=== PATIENT | male | born 1935 | race Caucasian/White ===

== ENCOUNTER 2020-08-05 17:30 | Inpatient (IN) | payer MEDICARE, BC ==
--- NOTE | 2020-08-05 17:59 | EDM.PDOC ---
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 person assist to get him on the gurney. IV will be D5 normal saline starting at 150 mils per hour. - Re-Assessments/Exams Free Text/Narrative Re-Assessment/Exam: 08/05/20 19:03 the lab called over and indicates his lactic acid is elevated at 2.4. IV will be therefore increased to open. Nurses report post void residual is only 7 mils. O2 sats have been 93% on 2 L/min by nasal cannula. 08/05/20 19:07 portable chest x-ray reveals a calcified lesion approximately 2.5 cm in diameter right lower lobe of lung. There is no obvious pneumonia. There is a fatty infiltrate I believe at the apex of the heart in the left lower lobe. This was present on chest x-ray done in September 2017. Mild cardiomegaly present. Mild tortuous thoracic aorta appreciated. 08/05/20 19:10 White count is 9.57 with 85% neutrophils and 2% bands cells reported. Hemoglobin is mildly low at 10.8 with hematocrit of 33.2. MCV is mildly elevated at 98.2. The micro reveals platelet estimate to be adequate. There is 1+ anisocytosis and 1+ ovalocytes reported. PT is 11.2 with an INR of 1.05. PTT is 25.8. Sodium 141 with a potassium of 4.1. Chloride 106 with a bicarb of 21. Anion gap is elevated at 18.1. BUN is 36 with a creatinine of 1.7 and a GFR of 38 I stage IIIb renal insufficiency. BUN/creatinine ratio minimally elevated at 21.2. Glucose elevated 163. Lactic acid elevated at 2.4. Calcium is 8.4 with a magnesium of 1.8. Liver function is normal. Troponin I is less than 0.026. C-reactive protein is elevated at 3.2. BNP elevated at 1112. Total protein 6.9 with an albumin fraction of 3.4. Urinalysis reveals 1+ proteinuria and trace of lysed occult blood. Negative leukocyte esterase and the micro does not reveal any signs of a urinary tract infection. 08/05/20 19:24 I have spoken with the on-call hospitalist Dr. Blane Michele. Decision made on the phone between the 2 of us to start the patient on Levaquin 500 mg IV. Dose reduced due to decreased renal function and age. Source of infection remains undiagnosed. Dr Michele will seethe patient in the ED with plans for admission. Departure - Departure Time of Disposition: 20:00 Disposition: Admitted As Inpatient 66 Condition: Fair Clinical Impression: Fever of undetermined origin, Elevated lactic acid level, Tachypnea, Hypoxia - Discharge Information *PRESCRIPTION DRUG MONITORING PROGRAM REVIEWED*: Not Applicable *COPY OF PRESCRIPTION DRUG MONITORING REPORT IN PATIENT CLAUDIA: Not Applicable Sepsis Event Note (ED) - Evaluation Sepsis Screening Result: No Definite Risk
[2020-08-05] MEDS ORDERED: Acetaminophen 325 MG Tab PO PRN (18:05)
[2020-08-05] MEDS ORDERED: Dextrose 5%-0.9% NaCl 1,000 ML IV SCH ×2 (18:15→19:15)
[2020-08-05] MEDS ORDERED: Levofloxacin/Dextrose 5%-Water 500 MG in Premix Bag 1 BAG IV ONE (19:22)
--- NOTE | 2020-08-05 20:03 | PCM.HP.2 ---
H&P History of Present Illness - General Date of Service: 08/05/20 Admit Problem/Dx: Admission Diagnosis/Problem Admission Diagnosis/Problem Fever due to infection, Hypoxia, ? Pneumonia due to chronic aspiration Source of Information: Patient, Provider History Limitations: Reports: No Limitations - History of Present Illness Initial Comments - Free Text/Narative: Patient is an 85-year-old male with a past medical history as listed below who presents to the [facility] emergency department from [facility]. He was transported due to fevers as high as 102 F today. The patient has also been unable to ambulate. The patient is usually quite ambulatory and exercises daily. He typically has no adverse effects or symptoms after his exercise. He denies any chest pain or shortness of breath usually. 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 Rigors have been transient and somewhat excessive throughout the day. Patient has been unable to ambulate with any aids. He claims a chronic cough. He denies any sputum production. Claims dysphagia for both solids and liquids since his stroke 10 years ago. He coughs quite frequently while he eats and drinks. He denies any recent sick contacts. No recent travel. Despite his fever and rigors, he has not noticed any shortness of breath, chest pain, chest pressure or pleurisy. Denies any abdominal complaints. Denies any difficulties with voiding. No new skin wounds. Upon presentation the emergency department he was noted to be tachycardic, he was febrile to 102 F and he was also hypoxic. This was remedied by supplemental oxygen at 2 L/min. It was documented that he appeared in mild distress but appears well at current time. He is answering questions appropriately and all history comes from him personally. Patient did not have a leukocytosis. He had a mild lactic acidosis. Urinalysis was negative. Questionable right lower lobe pathology on chest x-ray. Patient was referred to the internal medicine service for further work-up and management. The patient was loaded with 500 mg of empiric Levaquin as he met sepsis de finition. A 14 point review of systems was reviewed with the patient entirely and only pertinent for the above information. CODE STATUS: Reviewed with the patient and he wishes to be full code. Chest Pain Score (Numeric/FACES): 8 - Related Data Allergies/Adverse Reactions: Allergies Allergy/AdvReac Type Severity Reaction Status Date / Time No Known Allergies Allergy Verified 10/01/17 13:38 Home Medications: Home Meds Acetaminophen [Tylenol Arthritis] 650 mg PO Q6HR PRN 08/05/20 [History] Allopurinol [Zyloprim] 300 mg PO DAILY 08/05/20 [History] Aspirin 81 mg PO DAILY 08/05/20 [History] Carboxymethylcellulose Sodium [Refresh Celluvisc] 1 drop EYEBOTH QID 08/05/20 [History] Cholecalciferol (Vitamin D3) [Vitamin D3] 2,000 unit PO DAILY 08/05/20 [History] Cyanocobalamin (Vitamin B12) [Vitamin B12] 100 mcg PO DAILY 08/05/20 [History] Docusate Sodium 100 mg PO BID 08/05/20 [History] Doxazosin Mesylate [Cardura] 2 mg PO DAILY 08/05/20 [History] Finasteride 5 mg PO DAILY 08/05/20 [History] Fluticasone Propionate [Flonase] 1 spray NASBOTH BID 08/05/20 [History] Furosemide [Lasix] 20 mg PO DAILY 08/05/20 [History] Losartan Potassium 50 mg PO DAILY 08/05/20 [History] Triamcinolone Acetonide [Triamcinolone Acetonide 0.1% Crm] 1 dose TOP BID PRN 08/05/20 [History] amLODIPine [Norvasc] 5 mg PO DAILY 08/05/20 [History] atorvaSTATin [Lipitor] 10 mg PO QPM 08/05/20 [History] guaiFENesin [Mucinex] 1 tab PO BID PRN 08/05/20 [History] guaiFENesin/Dextromethorphan [Guaifenesin-Dm 100-10 mg/5 ml] 1 dose PO Q4HR PRN 08/05/20 [History] Past Medical History HEENT History: Reports: Impaired Vision, Other (See Below) (Patient is wearing bilateral hearing aids.) Other HEENT History: Chronic dry eye syndrome Cardiovascular History: Reports: Heart Failure (Elevated BNP in 2018 when seen in the ED.), High Cholesterol, Hypertension Respiratory History: Reports: Sleep Apnea Gastrointestinal History: Reports: Chronic Constipation Genitourinary History: Reports: BPH Musculoskeletal History: Reports: Arthritis, Gout Neurological History: 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 Patient is leaning to the left today with attempts to walk. Apparently this occurred cortez rly 10 years ago. Patient had a feeding tube after the CVA which is subsequently been removed.) - Infectious Disease History Infectious Disease History: Reports: Novel Coronavirus - Past Surgical History HEENT Surgical History: Reports: Cataract Surgery Cardiovascular Surgical History: Reports: None Respiratory Surgical History: Reports: None Neurological Surgical History: Reports: None Musculoskeletal Surgical History: Reports: None Social & Family History - Family History Family Medical History: No Pertinent Family History - Tobacco Use Tobacco Use Status *Q: Never Tobacco User Used Tobacco, but Quit: Yes Month/Year Tobacco Last Used: 60 - Caffeine Use Caffeine Use: Reports: Coffee, Soda - Recreational Drug Use Recreational Drug Use: No - Living Situation & Occupation Living situation: Reports: Extended Care Facility ([facility] H&P Review of Systems - Review of Systems: Review Of Systems: Comprehensive ROS is negative, except as noted in HPI. Exam - Exam Exam: See Below - Vital Signs Vital Signs: Last Vital Signs Temp 98.0 F 08/05/20 19:04 Pulse 96 08/05/20 19:04 Resp 20 08/05/20 19:04 BP 120/55 L 08/05/20 19:04 Pulse Ox 94 L 08/05/20 19:04 Weight: 194 lb - Exam Quality Assessment: Supplemental Oxygen, DVT Prophylaxis General: Alert, Oriented, Cooperative HEENT: Conjunctiva Clear, Nares Patent, Pupils Equal Neck: Supple, Trachea Midline Lungs: Decreased Breath Sounds, Rales (Mild in right lower alfaro.) Cardiovascular: Regular Rate, Normal S1, Normal S2 GI/Abdominal Exam: Normal Bowel Sounds, Soft, Non-Tender, No Distention Extremities: Normal Inspection, Non-Tender, No Pedal Edema Skin: Warm, Dry, Intact Neurological: Normal Speech Neuro Extensive - Mental Status: Normal Mood/Affect - Patient Data Lab Results Last 24 hrs: Laboratory Results - last 24 hr 08/05/20 08/05/20 08/05/20 Range/Units 17:55 17:55 17:55 WBC 9.57 H (4.23-9.07) K/mm3 RBC 3.38 L (4.63-6.08) M/mm3 Hgb 10.8 L (13.7-17.5) gm/dl Hct 33.2 L (40.1-51.0) % MCV 98.2 H (79.0-92.2) fl MCH 32.0 (25.7-32.2) pg MCHC 32.5 (32.2-35.5) g/dl RDW Std Deviation 53.1 H (35.1-43.9) fL Plt Count 197 D (163-337) K/mm3 MPV 9.7 (9.4-12.3) fl Neutrophils % (Manual) 85 H (40-60) % Band Neutrophils % 2 (0-10) % Lymphocytes % (Manual) 11 L (20-40) % Atypical Lymphs % 0 % Monocytes % (Manual) 2 (2-10) % Eosinophils % (Manual) 0 L (0.8-7.0) % Basophils % (Manual) 0 L (0.2-1.2) Platelet Estimate Adequate Anisocytosis 1+ slight Ovalocytes 1+ slight RBC Morph Comment Not Reportable PT 11.2 (9.7-12.0) SECONDS INR 1.05 APTT 25.8 (21.7-31.4) SECONDS Sodium 141 (136-145) mEq/L Potassium 4.1 (3.5-5.1) mEq/L Chloride 106 (98-107) mEq/L Carbon Dioxide 21 (21-32) mEq/L Anion Gap 18.1 H (5-15) BUN 36 H (7-18) mg/dL Creatinine 1.7 H (0.7-1.3) mg/dL Est Cr Clr Drug Dosing 32.80 mL/min Estimated GFR (MDRD) 38 (>60) mL/min BUN/Creatinine Ratio 21.2 H (14-18) Glucose 163 H (70-99) mg/dL Lactic Acid (0.4-2.0) mmol/L Calcium 8.4 L (8.5-10.1) mg/dL Magnesium 1.8 (1.8-2.4) mg/dL Total Bilirubin 0.5 (0.2-1.0) mg/dL AST 16 (15-37) U/L ALT 17 (16-63) U/L Alkaline Phosphatase 47 (46-116) U/L Troponin I 0.026 (0.00-0.056) ng/mL C-Reactive Protein 3.2 H* (<1.0) mg/dL NT-Pro-B Natriuret Pep (0-450) pg/mL Total Protein 6.9 (6.4-8.2) g/dl Albumin 3.4 (3.4-5.0) g/dl Globulin 3.5 gm/dL Albumin/Globulin Ratio 1.0 (1-2) Urine Color (Yellow) Urine Appearance (Clear) Urine pH (5.0-8.0) Ur Specific [place] (1.005-1.030) Urine Protein (Negative) Urine Glucose (UA) (Negative) Urine Ketones (Negative) Urine Occult Blood (Negative) Urine Nitrite (Negative) Urine Bilirubin (Negative) Urine Urobilinogen (0.2-1.0) Ur Leukocyte Esterase (Negative) Urine RBC (0-5) /hpf Urine WBC (0-5) /hpf Ur Squamous Epith Cells (0-5) /hpf Urine Bacteria (FEW) /hpf Urine Mucus (FEW) /hpf SARS-CoV-2 RNA (RASHARD) (NEGATIVE) 08/05/20 08/05/20 08/05/20 Range/Units 17:55 17:55 18:15 WBC (4.23-9.07) K/mm3 RBC (4.63-6.08) M/mm3 Hgb (13.7-17.5) gm/dl Hct (40.1-51.0) % MCV (79.0-92.2) fl MCH (25.7-32.2) pg MCHC (32.2-35.5) g/dl RDW Std Deviation (35.1-43.9) fL Plt Count (163-337) K/mm3 MPV (9.4-12.3) fl Neutrophils % (Manual) (40-60) % Band Neutrophils % (0-10) % Lymphocytes % (Manual) (20-40) % Atypical Lymphs % % Monocytes % (Manual) (2-10) % Eosinophils % (Manual) (0.8-7.0) % Basophils % (Manual) (0.2-1.2) Platelet Estimate Anisocytosis Ovalocytes RBC Morph Comment PT (9.7-12.0) SECONDS INR APTT (21.7-31.4) SECONDS Sodium (136-145) mEq/L Potassium (3.5-5.1) mEq/L Chloride (98-107) mEq/L Carbon Dioxide (21-32) mEq/L Anion Gap (5-15) BUN (7-18) mg/dL Creatinine (0.7-1.3) mg/dL Est Cr Clr Drug Dosing mL/min Estimated GFR (MDRD) (>60) mL/min BUN/Creatinine Ratio (14-18) Glucose (70-99) mg/dL Lactic Acid 2.4 H* (0.4-2.0) mmol/L Calcium (8.5-10.1) mg/dL Magnesium (1.8-2.4) mg/dL Total Bilirubin (0.2-1.0) mg/dL AST (15-37) U/L ALT (16-63) U/L Alkaline Phosphatase (46-116) U/L Troponin I (0.00-0.056) ng/mL C-Reactive Protein (<1.0) mg/dL NT-Pro-B Natriuret Pep 1112 H (0-450) pg/mL Total Protein (6.4-8.2) g/dl Albumin (3.4-5.0) g/dl Globulin gm/dL Albumin/Globulin Ratio (1-2) Urine Color Yellow (Yellow) Urine Appearance Clear (Clear) Urine pH 6.0 (5.0-8.0) Ur Specific [place] 1.020 (1.005-1.030) Urine Protein 1+ H (Negative) Urine Glucose (UA) Negative (Negative) Urine Ketones Negative (Negative) Urine Occult Blood Trace-lysed H (Negative) Urine Nitrite Negative (Negative) Urine Bilirubin Negative (Negative) Urine Urobilinogen 0.2 (0.2-1.0) Ur Leukocyte Esterase Negative (Negative) Urine RBC 0-5 (0-5) /hpf Urine WBC 0-5 (0-5) /hpf Ur Squamous Epith Cells 0-5 (0-5) /hpf Urine Bacteria Few (FEW) /hpf Urine Mucus Few (FEW) /hpf SARS-CoV-2 RNA (RASHARD) (NEGATIVE) 08/05/20 Range/Units 18:15 WBC (4.23-9.07) K/mm3 RBC (4.63-6.08) M/mm3 Hgb (13.7-17.5) gm/dl Hct (40.1-51.0) % MCV (79.0-92.2) fl MCH (25.7-32.2) pg MCHC (32.2-35.5) g/dl RDW Std Deviation (35.1-43.9) fL Plt Count (163-337) K/mm3 MPV (9.4-12.3) fl Neutrophils % (Manual) (40-60) % Band Neutrophils % (0-10) % Lymphocytes % (Manual) (20-40) % Atypical Lymphs % % Monocytes % (Manual) (2-10) % Eosinophils % (Manual) (0.8-7.0) % Basophils % (Manual) (0.2-1.2) Platelet Estimate Anisocytosis Ovalocytes RBC Morph Comment PT (9.7-12.0) SECONDS INR APTT (21.7-31.4) SECONDS Sodium (136-145) mEq/L Potassium (3.5-5.1) mEq/L Chloride (98-107) mEq/L Carbon Dioxide (21-32) mEq/L Anion Gap (5-15) BUN (7-18) mg/dL Creatinine (0.7-1.3) mg/dL Est Cr Clr Drug Dosing mL/min Estimated GFR (MDRD) (>60) mL/min BUN/Creatinine Ratio (14-18) Glucose (70-99) mg/dL Lactic Acid (0.4-2.0) mmol/L Calcium (8.5-10.1) mg/dL Magnesium (1.8-2.4) mg/dL Total Bilirubin (0.2-1.0) mg/dL AST (15-37) U/L ALT (16-63) U/L Alkaline Phosphatase (46-116) U/L Troponin I (0.00-0.056) ng/mL C-Reactive Protein (<1.0) mg/dL NT-Pro-B Natriuret Pep (0-450) pg/mL Total Protein (6.4-8.2) g/dl Albumin (3.4-5.0) g/dl Globulin gm/dL Albumin/Globulin Ratio (1-2) Urine Color (Yellow) Urine Appearance (Clear) Urine pH (5.0-8.0) Ur Specific [place] (1.005-1.030) Urine Protein (Negative) Urine Glucose (UA) (Negative) Urine Ketones (Negative) Urine Occult Blood (Negative) Urine Nitrite (Negative) Urine Bilirubin (Negative) Urine Urobilinogen (0.2-1.0) Ur Leukocyte Esterase (Negative) Urine RBC (0-5) /hpf Urine WBC (0-5) /hpf Ur Squamous Epith Cells (0-5) /hpf Urine Bacteria (FEW) /hpf Urine Mucus (FEW) /hpf SARS-CoV-2 RNA (RASHARD) Negative (NEGATIVE) Result Diagrams: 08/05/20 17:55 08/05/20 17:55 Sepsis Event Note - Evaluation Sepsis Screening Result: Severe Sepsis Risk Current Stage of Sepsis: Sepsis Possible Source of Sepsis: Pulmonary - Focused Exam Sepsis Event Note Statement: Focused Sepsis Exam Completed Vital Signs: Vital Signs Temp Temp Pulse Resp BP Pulse Ox Pulse Ox 08/05/20 19:04 98.0 F 96 20 120/55 L 94 L 08/05/20 18:28 94 L 08/05/20 18:14 99.0 F 08/05/20 17:50 99.6 F 104 H 21 H 137/57 L 85 L - Problem List (1) Sepsis SNOMED Code(s): 82136408 ICD Code: A41.9 - SEPSIS, UNSPECIFIED ORGANISM Status: Acute Priority: Low Current Visit: Yes Qualifiers: Sepsis type: sepsis due to unspecified organism Severe sepsis acute organ dysfunction type: acute respiratory failure Acute respiratory failure type: wi th hypoxia Severe sepsis shock status: without septic shock (2) Pneumonia SNOMED Code(s): 268283419 ICD Code: J18.9 - PNEUMONIA, UNSPECIFIED ORGANISM Status: Acute Current Visit: Yes (3) Hypoxia SNOMED Code(s): 009661519 ICD Code: R09.02 - HYPOXEMIA Status: Acute Current Visit: Yes Problem List Initiated/Reviewed/Updated: Yes Orders Last 24hrs: Active Orders 24 hr Category Date Time Status Patient Status [ADT] Routine ADT 08/05/20 19:54 Ordered Bladder Scan [RC] ASDIRECTED Care 08/05/20 18:07 Active EKG Documentation Completion [RC] STAT Care 08/05/20 18:05 Active Oxygen Therapy [RC] ASDIRECTED Care 08/05/20 18:06 Active Oxygen Therapy [RC] PRN Care 08/05/20 19:54 Ordered Up With Assistance [RC] ASDIRECTED Care 08/05/20 19:54 Ordered VTE/DVT Education [RC] PER UNIT ROUTINE Care 08/05/20 19:54 Ordered Vital Signs [RC] Q4H Care 08/05/20 19:54 Ordered OT Evaluation and Treatment [CONS] Routine Cons 08/05/20 19:56 Ordered PT Evaluation and Treatment [CONS] Routine Cons 08/05/20 19:56 Ordered LUMP ROLLER Evaluation and Treatment [CONS] Routine Cons 08/05/20 19:56 Ordered 2 Gram Sodium Diet [DIET] Diet 08/05/20 Breakfast Ordered Chest 1V Frontal [CR] Stat Exams 08/05/20 18:05 Taken BASIC METABOLIC PANEL,BMP [CHEM] DAILY Lab 08/06/20 20:00 Ordered BASIC METABOLIC PANEL,BMP [CHEM] DAILY Lab 08/07/20 20:00 Ordered BASIC METABOLIC PANEL,BMP [CHEM] DAILY Lab 08/08/20 20:00 Ordered BASIC METABOLIC PANEL,BMP [CHEM] DAILY Lab 08/09/20 20:00 Ordered BASIC METABOLIC PANEL,BMP [CHEM] DAILY Lab 08/10/20 20:00 Ordered BASIC METABOLIC PANEL,BMP [CHEM] DAILY Lab 08/11/20 20:00 Ordered CBC WITH AUTO DIFF [HEME] DAILY Lab 08/06/20 20:00 Ordered CBC WITH AUTO DIFF [HEME] DAILY Lab 08/07/20 20:00 Ordered CBC WITH AUTO DIFF [HEME] DAILY Lab 08/08/20 20:00 Ordered CBC WITH AUTO DIFF [HEME] DAILY Lab 08/09/20 20:00 Ordered CBC WITH AUTO DIFF [HEME] DAILY Lab 08/10/20 20:00 Ordered Acetaminophen [TylenoL] Med 08/05/20 18:05 Active 650 mg PO Q4H PRN Dextrose 5%-0.9% NaCl [Dextrose 5%-Normal Saline] 1,000 Med 08/05/20 19:15 Active ml IV ASDIRECTED Levofloxacin/Dextrose 5%-Water [Levaquin in D5W 500 MG/ Med 08/05/20 19:22 Active 100 ML] 500 mg Premix Bag 1 bag IV ONETIME Resuscitation Status Routine Resus Stat 08/05/20 19:54 Ordered Medication Orders Acetaminophen (Acetaminophen 325 Mg Tab) 650 mg PO Q4H PRN PRN Reason: Pain Last Admin: 08/05/20 18:14 Dose: 650 mg Documented by: CECILIA Dextrose/Sodium Chloride (Dextrose 5%-Normal Saline) 1,000 mls @ 999 mls/hr IV ASDIRECTED FORD Last Admin: 08/05/20 19:14 Dose: 999 mls/hr Documented by: LANA Levofloxacin/Dextrose 500 mg/ (Premix) 100 mls @ 100 mls/hr IV ONETIME ONE Stop: 08/05/20 20:21 Last Admin: 08/05/20 19:34 Dose: 100 mls/hr Documented by: LANA Assessment/Plan Comment:: 85-year-old male who presents from [facility] due to fever, chills, rigors with hypoxia. 1. Sepsis (nonsevere, nonshock). Admit to the hospitalist service for further work-up and treatment. Source likely pneumonic. Possibly due to chronic aspiration. Patient given Levaquin in the emergency department. We will continue with Rocephin and azithromycin considering fluoroquinolones will have to be renally dosed. Continue volume expansion with crystalloid overnight. Patient with just a very mild lactic acidosis. Caution with aggressive volume expansion due to history of heart failure. Patient does not appear toxic. 2. Acute hypoxic respiratory failure secondary to likely pneumonia. Also likely multifactorial in the setting of COPD and mild congestive heart failure baseline. Plan as above as per empiric antibiotics. Respiratory therapy consult. Incentive spirometry and DuoNebs as needed. Supplemental oxygen as necessary with titration to greater than 92%. Daily ambulation saturation trials. 3. Hypertension. Continue home medications at regular dose. 4. Prior CVA. Continue antiplatelets and statin. PT and OT examination and treatment. Speech therapy consult pending due to swallowing mechanics likely leading to chronic aspiration. 5. History of gout. Continue daily prophylaxis with allopurinol. 6. BPH. Continue alpha-rakesh and finasteride. 7. Chronic congestive heart failure. Unspecified. Monitor volume status. Patient is on Lasix 20 mg daily. Will reinstate when euvolemic. Follow with PCP, obtain echocardiographic records if possible. CODE STATUS: Full code. DVT prophylaxis with heparin. - Mortality Measure Prognosis:: Good
[2020-08-05] MEDS ORDERED: Ondansetron 4 MG Tab.DIS PO PRN (20:13)
[2020-08-05] MEDS ORDERED: Docusate Sodium 100 MG Cap PO PRN (20:13)
[2020-08-05] MEDS ORDERED: Sodium Chloride 0.9% 10 ML Syringe FLUSH PRN (20:13)
[2020-08-05] MEDS ORDERED: Albuterol/Ipratropium 3.0-0.5 MG/3 ML Neb Soln NEB PRN (20:13)
[2020-08-05] MEDS ORDERED: Ondansetron 4 MG/2 ML SDV IV PRN (20:13)
[2020-08-05] MEDS ORDERED: guaiFENesin/Dextromethorphan 100-10 MG/5 ML Soln 5 ML Cup PO PRN (20:16)
[2020-08-05] MEDS ORDERED: guaiFENesin 600 MG Tab.ER PO PRN (20:16)
[2020-08-05] MEDS: Fluticasone Propionate Nasal Spray 16 GM Bottle NASBOTH SCH (22:11)
[2020-08-05] MEDS: cefTRIAXone 1 GM in Sodium Chloride 0.9% 100 ML IV SCH (22:11)
[2020-08-05] MEDS: Heparin Sodium 5,000 Units/ML Vial SUBCUT SCH (22:13)
[2020-08-05] MEDS: Azithromycin 500 MG in Sodium Chloride 0.9% 250 ML IV SCH (22:15)
[2020-08-06] MEDS: Heparin Sodium 5,000 Units/ML Vial SUBCUT SCH ×3 (06:17→21:24)
--- NOTE | 2020-08-06 08:08 | CR ---
Chest: Portable view of the chest was obtained. Comparison: Prior chest x-ray of 10/01/17 Heart size and mediastinum are within normal limits. Slight linear density is noted within the left lung base which appears stable from prior study which is presumably due to scarring. No acute parenchymal change is seen. Bony structures are within normal limits for the patient's age. Impression: 1. Stable findings as noted above. 2. Nothing acute is seen on portable chest x-ray. Diagnostic code #2
[2020-08-06] MEDS: Aspirin 81 MG Tab.Chew PO SCH (08:21)
[2020-08-06] MEDS: amLODIPine 5 MG Tab PO SCH (08:21)
[2020-08-06] MEDS: Finasteride 5 MG Tab PO SCH (08:22)
[2020-08-06] MEDS: Losartan 50 MG Tab PO SCH (08:22)
[2020-08-06] MEDS: Doxazosin 2 MG Tab PO SCH (08:22)
[2020-08-06] MEDS: Allopurinol 300 MG Tab PO SCH (08:22)
[2020-08-06] MEDS: Fluticasone Propionate Nasal Spray 16 GM Bottle NASBOTH SCH ×2 (08:22→20:39)
--- NOTE | 2020-08-06 08:44 | PCM.PN ---
- General Info Date of Service: 08/06/20 Admission Dx/Problem (Free Text): Admission Diagnosis/Problem Admission Diagnosis/Problem Fever due to infection, Hypoxia, ? Pneumonia due to chronic aspiration Subjective Update: No acute events overnight. No new nursing concerns. Patient remains on 1-2 L of supplemental oxygen. Patient eating breakfast. States that he is coughing a little bit when trying to swallow. Denies fever. States that he feels better in comparison to when he came in. - Patient Data Vitals - Most Recent: Last Vital Signs Temp 100.6 F 08/06/20 07:27 Pulse 81 08/06/20 07:27 Resp 16 08/06/20 07:27 BP 142/60 H 08/06/20 08:22 Pulse Ox 96 08/06/20 07:27 Weight - Most Recent: 194 lb 4.8 oz I&O - Last 24 Hours: Intake & Output 08/05/20 08/06/20 08/06/20 22:59 06:59 14:59 Intake Total 670 Output Total 1200 Balance -530 Lab Results Last 24 Hours: Laboratory Results - last 24 hr 08/05/20 08/05/20 08/05/20 Range/Units 17:55 17:55 17:55 WBC 9.57 H (4.23-9.07) K/mm3 RBC 3.38 L (4.63-6.08) M/mm3 Hgb 10.8 L (13.7-17.5) gm/dl Hct 33.2 L (40.1-51.0) % MCV 98.2 H (79.0-92.2) fl MCH 32.0 (25.7-32.2) pg MCHC 32.5 (32.2-35.5) g/dl RDW Std Deviation 53.1 H (35.1-43.9) fL Plt Count 197 D (163-337) K/mm3 MPV 9.7 (9.4-12.3) fl Neutrophils % (Manual) 85 H (40-60) % Band Neutrophils % 2 (0-10) % Lymphocytes % (Manual) 11 L (20-40) % Atypical Lymphs % 0 % Monocytes % (Manual) 2 (2-10) % Eosinophils % (Manual) 0 L (0.8-7.0) % Basophils % (Manual) 0 L (0.2-1.2) Platelet Estimate Adequate Anisocytosis 1+ slight Ovalocytes 1+ slight RBC Morph Comment Not Reportable PT 11.2 (9.7-12.0) SECONDS INR 1.05 APTT 25.8 (21.7-31.4) SECONDS Sodium 141 (136-145) mEq/L Potassium 4.1 (3.5-5.1) mEq/L Chloride 106 (98-107) mEq/L Carbon Dioxide 21 (21-32) mEq/L Anion Gap 18.1 H (5-15) BUN 36 H (7-18) mg/dL Creatinine 1.7 H (0.7-1.3) mg/dL Est Cr Clr Drug Dosing 32.80 mL/min Estimated GFR (MDRD) 38 (>60) mL/min BUN/Creatinine Ratio 21.2 H (14-18) Glucose 163 H (70-99) mg/dL Lactic Acid (0.4-2.0) mmol/L Calcium 8.4 L (8.5-10.1) mg/dL Magnesium 1.8 (1.8-2.4) mg/dL Total Bilirubin 0.5 (0.2-1.0) mg/dL AST 16 (15-37) U/L ALT 17 (16-63) U/L Alkaline Phosphatase 47 (46-116) U/L Troponin I 0.026 (0.00-0.056) ng/mL C-Reactive Protein 3.2 H* (<1.0) mg/dL NT-Pro-B Natriuret Pep (0-450) pg/mL Total Protein 6.9 (6.4-8.2) g/dl Albumin 3.4 (3.4-5.0) g/dl Globulin 3.5 gm/dL Albumin/Globulin Ratio 1.0 (1-2) Urine Color (Yellow) Urine Appearance (Clear) Urine pH (5.0-8.0) Ur Specific [place] (1.005-1.030) Urine Protein (Negative) Urine Glucose (UA) (Negative) Urine Ketones (Negative) Urine Occult Blood (Negative) Urine Nitrite (Negative) Urine Bilirubin (Negative) Urine Urobilinogen (0.2-1.0) Ur Leukocyte Esterase (Negative) Urine RBC (0-5) /hpf Urine WBC (0-5) /hpf Ur Squamous Epith Cells (0-5) /hpf Urine Bacteria (FEW) /hpf Urine Mucus (FEW) /hpf SARS-CoV-2 RNA (RASHARD) (NEGATIVE) 08/05/20 08/05/20 08/05/20 Range/Units 17:55 17:55 18:15 WBC (4.23-9.07) K/mm3 RBC (4.63-6.08) M/mm3 Hgb (13.7-17.5) gm/dl Hct (40.1-51.0) % MCV (79.0-92.2) fl MCH (25.7-32.2) pg MCHC (32.2-35.5) g/dl RDW Std Deviation (35.1-43.9) fL Plt Count (163-337) K/mm3 MPV (9.4-12.3) fl Neutrophils % (Manual) (40-60) % Band Neutrophils % (0-10) % Lymphocytes % (Manual) (20-40) % Atypical Lymphs % % Monocytes % (Manual) (2-10) % Eosinophils % (Manual) (0.8-7.0) % Basophils % (Manual) (0.2-1.2) Platelet Estimate Anisocytosis Ovalocytes RBC Morph Comment PT (9.7-12.0) SECONDS INR APTT (21.7-31.4) SECONDS Sodium (136-145) mEq/L Potassium (3.5-5.1) mEq/L Chloride (98-107) mEq/L Carbon Dioxide (21-32) mEq/L Anion Gap (5-15) BUN (7-18) mg/dL Creatinine (0.7-1.3) mg/dL Est Cr Clr Drug Dosing mL/min Estimated GFR (MDRD) (>60) mL/min BUN/Creatinine Ratio (14-18) Glucose (70-99) mg/dL Lactic Acid 2.4 H* (0.4-2.0) mmol/L Calcium (8.5-10.1) mg/dL Magnesium (1.8-2.4) mg/dL Total Bilirubin (0.2-1.0) mg/dL AST (15-37) U/L ALT (16-63) U/L Alkaline Phosphatase (46-116) U/L Troponin I (0.00-0.056) ng/mL C-Reactive Protein (<1.0) mg/dL NT-Pro-B Natriuret Pep 1112 H (0-450) pg/mL Total Protein (6.4-8.2) g/dl Albumin (3.4-5.0) g/dl Globulin gm/dL Albumin/Globulin Ratio (1-2) Urine Color Yellow (Yellow) Urine Appearance Clear (Clear) Urine pH 6.0 (5.0-8.0) Ur Specific [place] 1.020 (1.005-1.030) Urine Protein 1+ H (Negative) Urine Glucose (UA) Negative (Negative) Urine Ketones Negative (Negative) Urine Occult Blood Trace-lysed H (Negative) Urine Nitrite Negative (Negative) Urine Bilirubin Negative (Negative) Urine Urobilinogen 0.2 (0.2-1.0) Ur Leukocyte Esterase Negative (Negative) Urine RBC 0-5 (0-5) /hpf Urine WBC 0-5 (0-5) /hpf Ur Squamous Epith Cells 0-5 (0-5) /hpf Urine Bacteria Few (FEW) /hpf Urine Mucus Few (FEW) /hpf SARS-CoV-2 RNA (RASHARD) (NEGATIVE) 08/05/20 08/05/20 Range/Units 18:15 21:38 WBC (4.23-9.07) K/mm3 RBC (4.63-6.08) M/mm3 Hgb (13.7-17.5) gm/dl Hct (40.1-51.0) % MCV (79.0-92.2) fl MCH (25.7-32.2) pg MCHC (32.2-35.5) g/dl RDW Std Deviation (35.1-43.9) fL Plt Count (163-337) K/mm3 MPV (9.4-12.3) fl Neutrophils % (Manual) (40-60) % Band Neutrophils % (0-10) % Lymphocytes % (Manual) (20-40) % Atypical Lymphs % % Monocytes % (Manual) (2-10) % Eosinophils % (Manual) (0.8-7.0) % Basophils % (Manual) (0.2-1.2) Platelet Estimate Anisocytosis Ovalocytes RBC Morph Comment PT (9.7-12.0) SECONDS INR APTT (21.7-31.4) SECONDS Sodium (136-145) mEq/L Potassium (3.5-5.1) mEq/L Chloride (98-107) mEq/L Carbon Dioxide (21-32) mEq/L Anion Gap (5-15) BUN (7-18) mg/dL Creatinine (0.7-1.3) mg/dL Est Cr Clr Drug Dosing mL/min Estimated GFR (MDRD) (>60) mL/min BUN/Creatinine Ratio (14-18) Glucose (70-99) mg/dL Lactic Acid 2.0 (0.4-2.0) mmol/L Calcium (8.5-10.1) mg/dL Magnesium (1.8-2.4) mg/dL Total Bilirubin (0.2-1.0) mg/dL AST (15-37) U/L ALT (16-63) U/L Alkaline Phosphatase (46-116) U/L Troponin I (0.00-0.056) ng/mL C-Reactive Protein (<1.0) mg/dL NT-Pro-B Natriuret Pep (0-450) pg/mL Total Protein (6.4-8.2) g/dl Albumin (3.4-5.0) g/dl Globulin gm/dL Albumin/Globulin Ratio (1-2) Urine Color (Yellow) Urine Appearance (Clear) Urine pH (5.0-8.0) Ur Specific [place] (1.005-1.030) Urine Protein (Negative) Urine Glucose (UA) (Negative) Urine Ketones (Negative) Urine Occult Blood (Negative) Urine Nitrite (Negative) Urine Bilirubin (Negative) Urine Urobilinogen (0.2-1.0) Ur Leukocyte Esterase (Negative) Urine RBC (0-5) /hpf Urine WBC (0-5) /hpf Ur Squamous Epith Cells (0-5) /hpf Urine Bacteria (FEW) /hpf Urine Mucus (FEW) /hpf SARS-CoV-2 RNA (ARSHARD) Negative (NEGATIVE) Med Orders - Current: Current Medications Acetaminophen (Acetaminophen 325 Mg Tab) 650 mg PO Q4H PRN PRN Reason: Pain Last Admin: 08/05/20 18:14 Dose: 650 mg Documented by: Albuterol/Ipratropium (Albuterol/Ipratropium 3.0-0.5 Mg/3 Ml Neb Soln) 3 ml NEB Q4H PRN PRN Reason: Shortness Of Breath/wheezing Allopurinol (Allopurinol 300 Mg Tab) 300 mg PO DAILY [facility] Last Admin: 08/06/20 08:22 Dose: 300 mg Documented by: Amlodipine Besylate (Amlodipine 5 Mg Tab) 5 mg PO DAILY [facility] Last Admin: 08/06/20 08:21 Dose: 5 mg Documented by: Aspirin (Aspirin 81 Mg Tab.Chew) 81 mg PO DAILY [facility] Last Admin: 08/06/20 08:21 Dose: 81 mg Documented by: Atorvastatin Calcium (Atorvastatin 20 Mg Tab) 10 mg PO QPM [facility] Docusate Sodium (Docusate Sodium 100 Mg Cap) 100 mg PO BID PRN PRN Reason: Constipation Doxazosin Mesylate (Doxazosin 2 Mg Tab) 2 mg PO DAILY [facility] Last Admin: 08/06/20 08:22 Dose: 2 mg Documented by: Finasteride (Finasteride 5 Mg Tab) 5 mg PO DAILY [facility] Last Admin: 08/06/20 08:22 Dose: 5 mg Documented by: Fluticasone Propionate (Fluticasone Propionate Nasal [place] 16 Gm Bottle) 0 gm NASBOTH BID [facility] Last Admin: 08/06/20 08:22 Dose: 1 spray Documented by: Guaifenesin (Guaifenesin 600 Mg Tab.Er) 600 mg PO BID PRN PRN Reason: Congestion Guaifenesin/Phenylephrine HCl (Guaifenesin/Dextromethorphan 100-10 Mg/5 Ml Soln 5 Ml Cup) 5 ml PO Q4HR PRN PRN Reason: Cough Heparin Sodium (Porcine) (Heparin Sodium 5,000 Units/Ml Vial) 5,000 units SUBCUT Q8HR [facility] Dextrose/Sodium Chloride (Dextrose 5%-Normal Saline) 1,000 mls @ 999 mls/hr IV ASDIRECTED [facility] Last Admin: 08/05/20 19:14 Dose: 999 mls/hr Documented by: Ceftriaxone Sodium 1 gm/ (Sodium Chloride) 100 mls @ 200 mls/hr IV Q24H [facility] Last Admin: 08/05/20 22:11 Dose: 200 mls/hr Documented by: Azithromycin 500 mg/ Sodium (Chloride) 250 mls @ 250 mls/hr IV Q24H [facility] Last Admin: 08/05/20 22:15 Dose: 250 mls/hr Documented by: Losartan Potassium (Losartan 50 Mg Tab) 50 mg PO DAILY [facility] Last Admin: 08/06/20 08:22 Dose: 50 mg Documented by: Ondansetron HCl (Ondansetron 4 Mg Tab.Dis) 4 mg PO Q4H PRN PRN Reason: nausea, able to take PO Ondansetron HCl (Ondansetron 4 Mg/2 Ml Sdv) 4 mg IV Q4H PRN PRN Reason: Nausea/Vomiting Sodium Chloride (Sodium Chloride 0.9% 10 Ml Syringe) 10 ml FLUSH ASDIRECTED PRN PRN Reason: Keep Vein Open Discontinued Medications Heparin Sodium (Porcine) (Heparin Sodium 5,000 Units/Ml Vial) 5,000 units SUBCUT Q8H [facility] Last Admin: 08/06/20 06:17 Dose: 5,000 units Documented by: Dextrose/Sodium Chloride (Dextrose 5%-Normal Saline) 1,000 mls @ 125 mls/hr IV ASDIRECTED [facility] Last Admin: 08/05/20 18:14 Dose: 125 mls/hr Documented by: Levofloxacin/Dextrose 500 mg/ (Premix) 100 mls @ 100 mls/hr IV ONETIME ONE Stop: 08/05/20 20:21 Last Admin: 08/05/20 19:34 Dose: 100 mls/hr Documented by: - Exam Quality Assessment: Supplemental Oxygen, DVT Prophylaxis General: Alert, Cooperative, No Acute Distress, Other (Nontoxic-appearing) Lungs: Normal Respiratory Effort, Decreased Breath Sounds (Right base) Cardiovascular: Regular Rate, No Murmurs GI/Abdominal Exam: Normal Bowel Sounds, Soft, Non-Tender, No Distention Extremities: Normal Inspection, No Pedal Edema Skin: Warm, Dry Psy/Mental Status: Normal Mood - Patient Data Lab Results Last 24 hrs: Laboratory Results - last 24 hr 08/05/20 08/05/20 08/05/20 Range/Units 17:55 17:55 17:55 WBC 9.57 H (4.23-9.07) K/mm3 RBC 3.38 L (4.63-6.08) M/mm3 Hgb 10.8 L (13.7-17.5) gm/dl Hct 33.2 L (40.1-51.0) % MCV 98.2 H (79.0-92.2) fl MCH 32.0 (25.7-32.2) pg MCHC 32.5 (32.2-35.5) g/dl RDW Std Deviation 53.1 H (35.1-43.9) fL Plt Count 197 D (163-337) K/mm3 MPV 9.7 (9.4-12.3) fl Neutrophils % (Manual) 85 H (40-60) % Band Neutrophils % 2 (0-10) % Lymphocytes % (Manual) 11 L (20-40) % Atypical Lymphs % 0 % Monocytes % (Manual) 2 (2-10) % Eosinophils % (Manual) 0 L (0.8-7.0) % Basophils % (Manual) 0 L (0.2-1.2) Platelet Estimate Adequate Anisocytosis 1+ slight Ovalocytes 1+ slight RBC Morph Comment Not Reportable PT 11.2 (9.7-12.0) SECONDS INR 1.05 APTT 25.8 (21.7-31.4) SECONDS Sodium 141 (136-145) mEq/L Potassium 4.1 (3.5-5.1) mEq/L Chloride 106 (98-107) mEq/L Carbon Dioxide 21 (21-32) mEq/L Anion Gap 18.1 H (5-15) BUN 36 H (7-18) mg/dL Creatinine 1.7 H (0.7-1.3) mg/dL Est Cr Clr Drug Dosing 32.80 mL/min Estimated GFR (MDRD) 38 (>60) mL/min BUN/Creatinine Ratio 21.2 H (14-18) Glucose 163 H (70-99) mg/dL Lactic Acid (0.4-2.0) mmol/L Calcium 8.4 L (8.5-10.1) mg/dL Magnesium 1.8 (1.8-2.4) mg/dL Total Bilirubin 0.5 (0.2-1.0) mg/dL AST 16 (15-37) U/L ALT 17 (16-63) U/L Alkaline Phosphatase 47 (46-116) U/L Troponin I 0.026 (0.00-0.056) ng/mL C-Reactive Protein 3.2 H* (<1.0) mg/dL NT-Pro-B Natriuret Pep (0-450) pg/mL Total Protein 6.9 (6.4-8.2) g/dl Albumin 3.4 (3.4-5.0) g/dl Globulin 3.5 gm/dL Albumin/Globulin Ratio 1.0 (1-2) Urine Color (Yellow) Urine Appearance (Clear) Urine pH (5.0-8.0) Ur Specific [place] (1.005-1.030) Urine Protein (Negative) Urine Glucose (UA) (Negative) Urine Ketones (Negative) Urine Occult Blood (Negative) Urine Nitrite (Negative) Urine Bilirubin (Negative) Urine Urobilinogen (0.2-1.0) Ur Leukocyte Esterase (Negative) Urine RBC (0-5) /hpf Urine WBC (0-5) /hpf Ur Squamous Epith Cells (0-5) /hpf Urine Bacteria (FEW) /hpf Urine Mucus (FEW) /hpf SARS-CoV-2 RNA (RASHARD) (NEGATIVE) 08/05/20 08/05/20 08/05/20 Range/Units 17:55 17:55 18:15 WBC (4.23-9.07) K/mm3 RBC (4.63-6.08) M/mm3 Hgb (13.7-17.5) gm/dl Hct (40.1-51.0) % MCV (79.0-92.2) fl MCH (25.7-32.2) pg MCHC (32.2-35.5) g/dl RDW Std Deviation (35.1-43.9) fL Plt Count (163-337) K/mm3 MPV (9.4-12.3) fl Neutrophils % (Manual) (40-60) % Band Neutrophils % (0-10) % Lymphocytes % (Manual) (20-40) % Atypical Lymphs % % Monocytes % (Manual) (2-10) % Eosinophils % (Manual) (0.8-7.0) % Basophils % (Manual) (0.2-1.2) Platelet Estimate Anisocytosis Ovalocytes RBC Morph Comment PT (9.7-12.0) SECONDS INR APTT (21.7-31.4) SECONDS Sodium (136-145) mEq/L Potassium (3.5-5.1) mEq/L Chloride (98-107) mEq/L Carbon Dioxide (21-32) mEq/L Anion Gap (5-15) BUN (7-18) mg/dL Creatinine (0.7-1.3) mg/dL Est Cr Clr Drug Dosing mL/min Estimated GFR (MDRD) (>60) mL/min BUN/Creatinine Ratio (14-18) Glucose (70-99) mg/dL Lactic Acid 2.4 H* (0.4-2.0) mmol/L Calcium (8.5-10.1) mg/dL Magnesium (1.8-2.4) mg/dL Total Bilirubin (0.2-1.0) mg/dL AST (15-37) U/L ALT (16-63) U/L Alkaline Phosphatase (46-116) U/L Troponin I (0.00-0.056) ng/mL C-Reactive Protein (<1.0) mg/dL NT-Pro-B Natriuret Pep 1112 H (0-450) pg/mL Total Protein (6.4-8.2) g/dl Albumin (3.4-5.0) g/dl Globulin gm/dL Albumin/Globulin Ratio (1-2) Urine Color Yellow (Yellow) Urine Appearance Clear (Clear) Urine pH 6.0 (5.0-8.0) Ur Specific [place] 1.020 (1.005-1.030) Urine Protein 1+ H (Negative) Urine Glucose (UA) Negative (Negative) Urine Ketones Negative (Negative) Urine Occult Blood Trace-lysed H (Negative) Urine Nitrite Negative (Negative) Urine Bilirubin Negative (Negative) Urine Urobilinogen 0.2 (0.2-1.0) Ur Leukocyte Esterase Negative (Negative) Urine RBC 0-5 (0-5) /hpf Urine WBC 0-5 (0-5) /hpf Ur Squamous Epith Cells 0-5 (0-5) /hpf Urine Bacteria Few (FEW) /hpf Urine Mucus Few (FEW) /hpf SARS-CoV-2 RNA (RASHARD) (NEGATIVE) 08/05/20 08/05/20 Range/Units 18:15 21:38 WBC (4.23-9.07) K/mm3 RBC (4.63-6.08) M/mm3 Hgb (13.7-17.5) gm/dl Hct (40.1-51.0) % MCV (79.0-92.2) fl MCH (25.7-32.2) pg MCHC (32.2-35.5) g/dl RDW Std Deviation (35.1-43.9) fL Plt Count (163-337) K/mm3 MPV (9.4-12.3) fl Neutrophils % (Manual) (40-60) % Band Neutrophils % (0-10) % Lymphocytes % (Manual) (20-40) % Atypical Lymphs % % Monocytes % (Manual) (2-10) % Eosinophils % (Manual) (0.8-7.0) % Basophils % (Manual) (0.2-1.2) Platelet Estimate Anisocytosis Ovalocytes RBC Morph Comment PT (9.7-12.0) SECONDS INR APTT (21.7-31.4) SECONDS Sodium (136-145) mEq/L Potassium (3.5-5.1) mEq/L Chloride (98-107) mEq/L Carbon Dioxide (21-32) mEq/L Anion Gap (5-15) BUN (7-18) mg/dL Creatinine (0.7-1.3) mg/dL Est Cr Clr Drug Dosing mL/min Estimated GFR (MDRD) (>60) mL/min BUN/Creatinine Ratio (14-18) Glucose (70-99) mg/dL Lactic Acid 2.0 (0.4-2.0) mmol/L Calcium (8.5-10.1) mg/dL Magnesium (1.8-2.4) mg/dL Total Bilirubin (0.2-1.0) mg/dL AST (15-37) U/L ALT (16-63) U/L Alkaline Phosphatase (46-116) U/L Troponin I (0.00-0.056) ng/mL C-Reactive Protein (<1.0) mg/dL NT-Pro-B Natriuret Pep (0-450) pg/mL Total Protein (6.4-8.2) g/dl Albumin (3.4-5.0) g/dl Globulin gm/dL Albumin/Globulin Ratio (1-2) Urine Color (Yellow) Urine Appearance (Clear) Urine pH (5.0-8.0) Ur Specific [place] (1.005-1.030) Urine Protein (Negative) Urine Glucose (UA) (Negative) Urine Ketones (Negative) Urine Occult Blood (Negative) Urine Nitrite (Negative) Urine Bilirubin (Negative) Urine Urobilinogen (0.2-1.0) Ur Leukocyte Esterase (Negative) Urine RBC (0-5) /hpf Urine WBC (0-5) /hpf Ur Squamous Epith Cells (0-5) /hpf Urine Bacteria (FEW) /hpf Urine Mucus (FEW) /hpf SARS-CoV-2 RNA (RASHARD) Negative (NEGATIVE) Result Diagrams: 08/05/20 17:55 08/05/20 17:55 Sepsis Event Note - Evaluation Sepsis Screening Result: No Definite Risk - Focused Exam Vital Signs: Vital Signs Temp Pulse Resp BP Pulse Ox 08/06/20 08:22 142/60 H 08/06/20 08:21 142/60 H 08/06/20 08:20 142/60 H 08/06/20 07:27 100.6 F 81 16 134/56 L 96 08/06/20 02:06 98.4 F 85 20 125/65 93 L 08/05/20 22:54 99.3 F 72 18 96/61 93 L 08/05/20 20:50 97.7 F 77 18 120/39 L 94 L - Problem List & Annotations (1) Sepsis SNOMED Code(s): 10788420 Code(s): A41.9 - SEPSIS, UNSPECIFIED ORGANISM Status: Resolved Priority: Low Current Visit: Yes Qualifiers: Sepsis type: sepsis due to unspecified organism Severe sepsis acute organ dysfunction type: acute respiratory failure Acute respiratory failure type: with hypoxia Severe sepsis shock status: without septic shock (2) Pneumonia SNOMED Code(s): 676132921 Code(s): J18.9 - PNEUMONIA, UNSPECIFIED ORGANISM Status: Acute Current Visit: Yes (3) Hypoxia SNOMED Code(s): 851454086 Code(s): R09.02 - HYPOXEMIA Status: Acute Current Visit: Yes - Problem List Review Problem List Initiated/Reviewed/Updated: Yes - My Orders Last 24 Hours: My Active Orders 08/05/20 19:54 Patient Status [ADT] Routine Oxygen Therapy [RC] PRN Up With Assistance [RC] ASDIRECTED Vital Signs [RC] Q4H Resuscitation Status Routine 08/05/20 19:56 OT Evaluation and Treatment [CONS] Routine PT Evaluation and Treatment [CONS] Routine [employer] 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 Treatment [CONS] Routine 08/05/20 20:13 VTE/DVT Education [RC] PER UNIT ROUTINE Albuterol/Ipratropium [DuoNeb 3.0-0.5 MG/3 ML] 3 ml NEB Q4H PRN Docusate Sodium [Colace] 100 mg PO BID PRN Ondansetron [Zofran ODT] 4 mg PO Q4H PRN Ondansetron [Zofran] 4 mg IV Q4H PRN Sodium Chloride 0.9% [Saline Flush] 10 ml FLUSH ASDIRECTED PRN Saline Lock Insert [OM.PC] Routine 08/05/20 20:15 RT Aerosol Therapy [RC] ASDIRECTED 08/05/20 20:16 Dextromethorphan/guaiFENesin [Robitussin DM] 5 ml PO Q4HR PRN guaiFENesin [Mucinex] 600 mg PO BID PRN 08/05/20 20:30 Azithromycin [Zithromax] 500 mg Sodium Chloride 0.9% [Normal Saline (AdvBag)] 250 ml IV Q24H cefTRIAXone [Rocephin] 1 gm Sodium Chloride 0.9% [Normal Saline] 100 ml IV Q24H 08/05/20 21:00 Fluticasone Propionate [Flonase] 0 gm NASBOTH BID 08/06/20 09:00 Aspirin 81 mg PO DAILY Doxazosin [Cardura] 2 mg PO DAILY Finasteride [Proscar] 5 mg PO DAILY Losartan [Cozaar] 50 mg PO DAILY allopurinoL [Zyloprim] 300 mg PO DAILY amLODIPine [Norvasc] 5 mg PO DAILY 08/06/20 14:00 Heparin Sodium 5,000 units SUBCUT Q8HR 08/06/20 18:00 atorvaSTATin [Lipitor] 10 mg PO QPM 08/06/20 20:00 BASIC METABOLIC PANEL,BMP [CHEM] DAILY CBC WITH AUTO DIFF [HEME] DAILY 08/07/20 20:00 BASIC METABOLIC PANEL,BMP [CHEM] DAILY CBC WITH AUTO DIFF [HEME] DAILY 08/08/20 20:00 BASIC METABOLIC PANEL,BMP [CHEM] DAILY CBC WITH AUTO DIFF [HEME] DAILY 08/09/20 20:00 BASIC METABOLIC PANEL,BMP [CHEM] DAILY CBC WITH AUTO DIFF [HEME] DAILY 08/10/20 20:00 BASIC METABOLIC PANEL,BMP [CHEM] DAILY CBC WITH AUTO DIFF [HEME] DAILY 08/11/20 20:00 BASIC METABOLIC PANEL,BMP [CHEM] DAILY - Plan Plan:: 85-year-old male who presents from [facility] due to fever, chills, rigors with hypoxia. 1. Sepsis (nonsevere, nonshock). Source likely pneumonic. Possibly due to chronic aspiration. Patient given Levaquin in the emergency department. Continue with Rocephin and azithromycin considering fluoroquinolones will have to be renally dosed. Euvolemic at this point. Lactic acid normal. Patient does not appear toxic. Sepsis physiology resolved. 2. Acute hypoxic respiratory failure secondary to likely pneumonia. Also likely multifactorial in the setting of COPD and mild congestive heart failure baseline. Plan as above as per empiric antibiotics. Respiratory therapy consult. Incentive spirometry and DuoNebs as needed. Supplemental oxygen as necessary with titration to greater than 92%. Daily ambulation saturation trials. 3. Hypertension. Continue home medications at regular dose. 4. Prior CVA. Continue antiplatelets and statin. PT and OT examination and treatment. Speech therapy consult requested and pending due to swallowing mechanics likely leading to chronic aspiration. 5. History of gout. Continue daily prophylaxis with allopurinol. 6. BPH. Continue alpha-rakesh and finasteride. 7. Chronic congestive heart failure. Unspecified. Monitor volume status. Patient is on Lasix 20 mg daily. Will reinstate tomorrow. Follow with PCP, obtain echocardiographic records if possible. CODE STATUS: Full code. DVT prophylaxis with heparin.
[2020-08-06] MEDS ORDERED: atorvaSTATin 20 MG Tab PO SCH (18:00)
[2020-08-06] MEDS: cefTRIAXone 1 GM in Sodium Chloride 0.9% 100 ML IV SCH (20:39)
[2020-08-06] MEDS: Azithromycin 500 MG in Sodium Chloride 0.9% 250 ML IV SCH (21:24)
[2020-08-07] MEDS: Heparin Sodium 5,000 Units/ML Vial SUBCUT SCH (05:14)
[2020-08-07] MEDS: Aspirin 81 MG Tab.Chew PO SCH (09:20)
[2020-08-07] MEDS: Finasteride 5 MG Tab PO SCH (09:20)
[2020-08-07] MEDS: Doxazosin 2 MG Tab PO SCH (09:20)
[2020-08-07] MEDS: Losartan 50 MG Tab PO SCH (09:21)
[2020-08-07] MEDS: amLODIPine 5 MG Tab PO SCH (09:22)
[2020-08-07] MEDS: Allopurinol 300 MG Tab PO SCH (09:22)
[2020-08-07] MEDS: Fluticasone Propionate Nasal Spray 16 GM Bottle NASBOTH SCH (09:22)
--- NOTE | 2020-08-07 11:54 | PCM.DCSUM1 ---
Discharge Summary - Hospital Course Free Text/Narrative:: 85-year-old male who presents from [facility] due to fever, chills, rigors with hypoxia. 1. Sepsis (nonsevere, nonshock). Source likely pneumonic. Possibly due to chronic aspiration. Patient given Levaquin in the emergency department. Continued with Rocephin and azithromycin until time of discharge, at which del jessica was converted to Augmentin therapy to complete full course of antibiotics. Euvolemic at time of discharge Lactic acid normal. Sepsis physiology resolved. 2. Acute hypoxic respiratory failure secondary to likely pneumonia. Also likely multifactorial in the setting of COPD and mild congestive heart failure baseline. Antibiotics as noted above. Respiratory therapy consulted Incentive spirometry and DuoNebs as needed. Supplemental oxygen was provided as necessary. He was able to successfully wean off O2 the morning of 08/07. Daily ambulation saturation trials were tested by respiratory therapy. 3. Hypertension. Continued home medications at regular dose. 4. Prior CVA. Continued antiplatelets and statin. PT and OT examination and treatment. Speech therapy consult requested and pending due to swallowing mechanics likely leading to chronic aspiration. 5. History of gout. Continued daily prophylaxis with allopurinol. 6. BPH. Continued alpha-rakesh and finasteride. 7. Chronic congestive heart failure. Unspecified. Monitored volume status. Lasix orginally held but reinstated morning of discharge. CODE STATUS: Full code. DVT prophylaxis with heparin. HPI Initial Comments: Patient is an 85-year-old male with a past medical history as listed below who presents to the [facility] emergency department from [facility]. He was transported due to fevers as high as 102 F today. The patient has also been unable to ambulate. The patient is usually quite ambulatory and exercises daily. He typically has no adverse effects or symptoms after his exercise. He denies any chest pain or shortness of breath usually. Today, starting progress man he started to experience a persistent cold feeling with uncontrollable rigors. Rigors have been transient and somewhat excessive throughout the day. Patient has been unable to ambulate with any aids. He claims a chronic cough. He denies any sputum production. Claims dysphagia for both solids and liquids since his stroke 10 years ago. He coughs quite frequently while he eats and drinks. He denies any recent sick contacts. No recent travel. Despite his fever and rigors, he has not noticed any shortness of breath, chest pain, chest pressure or pleurisy. Denies any abdominal complaints. Denies any difficulties with voiding. No new skin wounds. Upon presentation the emergency department he was noted to be tachycardic, he was febrile to 102 F and he was also hypoxic. This was remedied by supp lemental oxygen at 2 L/min. It was documented that he appeared in mild distress but appears well at current time. He is answering questions appropriately and all history comes from him personally. Patient did not have a leukocytosis. He had a mild lactic acidosis. Urinalysis was negative. Questionable right lower lobe pathology on chest x-ray. Patient was referred to the internal medicine service for further work-up and management. The patient was loaded with 500 mg of empiric Levaquin as he met sepsis definition. A 14 point review of systems was reviewed with the patient entirely and only pertinent for the above information. CODE STATUS: Reviewed with the patient and he wishes to be full code. Chest Pain Score (Numeric/FACES): 8 - Related Data Allergies/Adverse Reactions: Allergies Allergy/AdvReac Type Severity Reaction Status Date / Time No Known Allergies Allergy Verified 10/01/17 13:38 Home Medications: Home Meds Acetaminophen [Tylenol Arthritis] 650 mg PO Q6HR PRN 08/05/20 [History] Allopurinol [Zyloprim] 300 mg PO DAILY 08/05/20 [History] Aspirin 81 mg PO DAILY 08/05/20 [History] Carboxymethylcellulose Sodium [Refresh Celluvisc] 1 drop EYEBOTH QID 08/05/20 [History] Cholecalciferol (Vitamin D3) [Vitamin D3] 2,000 unit PO DAILY 08/05/20 [History] Cyanocobalamin (Vitamin B12) [Vitamin B12] 100 mcg PO DAILY 08/05/20 [History] Docusate Sodium 100 mg PO BID 08/05/20 [History] Doxazosin Mesylate [Cardura] 2 mg PO DAILY 08/05/20 [History] Finasteride 5 mg PO DAILY 08/05/20 [History] Fluticasone Propionate [Flonase] 1 spray NASBOTH BID 08/05/20 [History] Furosemide [Lasix] 20 mg PO DAILY 08/05/20 [History] Losartan Potassium 50 mg PO DAILY 08/05/20 [History] Triamcinolone Acetonide [Triamcinolone Acetonide 0.1% Crm] 1 dose TOP BID PRN 08/05/20 [History] amLODIPine [Norvasc] 5 mg PO DAILY 08/05/20 [History] atorvaSTATin [Lipitor] 10 mg PO QPM 08/05/20 [History] guaiFENesin [Mucinex] 1 tab PO BID PRN 08/05/20 [History] guaiFENesin/Dextromethorphan [Guaifenesin-Dm 100-10 mg/5 ml] 1 dose PO Q4HR PRN 08/05/20 [History] Past Medical History HEENT History: Reports: Impaired Vision, Other (See Below) (Patient is wearing bilateral hearing aids.) Other HEENT History: Chronic dry eye syndrome Cardiovascular History: Reports: Heart Failure (Elevated BNP in 2018 when seen in the ED.), High Cholesterol, Hypertension Respiratory History: Reports: Sleep Apnea Gastrointestinal History: Reports: Chronic Constipation Genitourinary History: Reports: BPH Musculoskeletal History: Reports: Arthritis, Gout Neurological History: 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 Patient is leaning to the left today with attempts to walk. Apparently this occurred nearly 10 years ago. Patient had a feeding tube after the CVA which is subsequently been removed.) - Infectious Disease History Infectious Disease History: Reports: Novel Coronavirus - Past Surgical History HEENT Surgical History: Reports: Cataract Surgery Cardiovascular Surgical History: Reports: None Respiratory Surgical History: Reports: None Neurological Surgical History: Reports: None Musculoskeletal Surgical History: Reports: None Social & Family History - Family History Family Medical History: No Pertinent Family History - Tobacco Use Tobacco Use Status *Q: Never Tobacco User Used Tobacco, but Quit: Yes Month/Year Tobacco Last Used: 60 - Caffeine Use Caffeine Use: Reports: Coffee, Soda - Recreational Drug Use Recreational Drug Use: No - Living Situation & Occupation Living situation: Reports: Extended Care Facility ([facility] H&P Review of Systems - Review of Systems: Review Of Systems: Comprehensive ROS is negative, except as noted in HPI. Exam - Exam Exam: See Below - Vital Signs Vital Signs: Last Vital Signs Temp 98.0 F 08/05/20 19:04 Pulse 96 08/05/20 19:04 Resp 20 08/05/20 19:04 BP 120/55 L 08/05/20 19:04 Pulse Ox 94 L 08/05/20 19:04 Weight: 194 lb - Exam Quality Assessment: Supplemental Oxygen, DVT Prophylaxis General: Alert, Oriented, Cooperative HEENT: Conjunctiva Clear, Nares Patent, Pupils Equal Neck: Supple, Trachea Midline Lungs: Decreased Breath Sounds, Rales (Mild in right lower alfaro.) Cardiovascular: Regular Rate, Normal S1, Normal S2 GI/Abdominal Exam: Normal Bowel Sounds, Soft, Non-Tender, No Distention Extremities: Normal Inspection, Non-Tender, No Pedal Edema Skin: Warm, Dry, Intact Neurological: Normal Speech Neuro Extensive - Mental Status: Normal Mood/Affect - Discharge Data Discharge Date: 08/07/20 Discharge Disposition: Home, Self-Care 01 Condition: Good - Referral to Home Health Date of Face to Face Encounter: 08/07/20 Reason for Homebound Status: [id number] meeting with the patient. Patient has the following diagnosis; sepsis, pneumonia, hypoxia, also see discharge summary for additional diagnoses. Patient needs home health care nursing services for; longterm assessment, vital signs, disease education/management, and medication education. Physical therapy for gait training, transfer training, safety education, neuromuscular reeducation, therapeutic exercise, balance training. Occupational Therapy for; activities of daily living, balance training, functional mobility training, safety education, therapeutic activities, therapeutic exercises. Patient is currently homebound related decreased activity tolerance, decreased level of endurance, and need for assist to leave the facility. Patient will be followed by his primary care provider. Primary Care Physician: Edwardo Samaniego MD - Discharge Diagnosis/Problem(s) (1) Sepsis SNOMED Code(s): 65725479 ICD Code: A41.9 - SEPSIS, UNSPECIFIED ORGANISM Status: Resolved Priority: Low Current Visit: Yes Qualifiers: Sepsis type: sepsis due to unspecified organism Severe sepsis acute organ dysfunction type: acute respiratory failure Acute respiratory failure type: with hypoxia Severe sepsis shock status: without septic shock (2) Pneumonia SNOMED Code(s): 391061471 ICD Code: J18.9 - PNEUMONIA, UNSPECIFIED ORGANISM Status: Acute Current Visit: Yes (3) Hypoxia SNOMED Code(s): 695859431 ICD Code: R09.02 - HYPOXEMIA Status: Acute Current Visit: Yes - Patient Summary/Data Consults: Consultations 08/05/20 19:56 OT Evaluation and Treatment [CONS] Routine PT Evaluation and Treatment [CONS] Routine CASING PULLER Evaluation and Treatment [CONS] Routine - Patient Instructions Diet, Other: Mechanical diet as indicated by our speech therapist. Activity: As Tolerated Notify Provider of: Fever - Discharge Plan *PRESCRIPTION DRUG MONITORING PROGRAM REVIEWED*: Not Applicable *COPY OF PRESCRIPTION DRUG MONITORING REPORT IN PATIENT CLAUDIA: Not Applicable Prescriptions/Med Rec: Amoxicillin/Clavulanate K [Augmentin 875-125 MG] 1 tab PO BID #10 tablet Home Medications: Home Meds Acetaminophen [Tylenol Arthritis] 650 mg PO Q6HR PRN 08/05/20 [History] Allopurinol [Zyloprim] 300 mg PO DAILY 08/05/20 [History] Aspirin 81 mg PO DAILY 08/05/20 [History] Carboxymethylcellulose Sodium [Refresh Celluvisc] 1 drop EYEBOTH QID 08/05/20 [History] Cholecalciferol (Vitamin D3) [Vitamin D3] 2,000 unit PO DAILY 08/05/20 [History] Cyanocobalamin (Vitamin B12) [Vitamin B12] 100 mcg PO DAILY 08/05/20 [History] Docusate Sodium 100 mg PO BID 08/05/20 [History] Doxazosin Mesylate [Cardura] 2 mg PO DAILY 08/05/20 [History] Finasteride 5 mg PO DAILY 08/05/20 [History] Fluticasone Propionate [Flonase] 1 spray NASBOTH BID 08/05/20 [History] Furosemide [Lasix] 20 mg PO DAILY 08/05/20 [History] Losartan Potassium 50 mg PO DAILY 08/05/20 [History] Triamcinolone Acetonide [Triamcinolone Acetonide 0.1% Crm] 1 dose TOP BID PRN 08/05/20 [History] amLODIPine [Norvasc] 5 mg PO DAILY 08/05/20 [History] atorvaSTATin [Lipitor] 10 mg PO QPM 08/05/20 [History] guaiFENesin [Mucinex] 1 tab PO BID PRN 08/05/20 [History] guaiFENesin/Dextromethorphan [Guaifenesin-Dm 100-10 mg/5 ml] 1 dose PO Q4HR PRN 08/05/20 [History] Amoxicillin/Clavulanate K [Augmentin 875-125 MG] 1 tab PO BID #10 tablet 08/07/20 [Rx] Patient Handouts: Heart Failure Action Plan Forms: ED Department Discharge Referrals: Edwardo Samaniego MD [Primary Care Provider] - 08/20/20 11:30 am (check in 11:15) - Discharge Summary/Plan Comment DC Time >30 min.: Yes - General Info Date of Service: 08/07/20 Admission Dx/Problem (Free Text: Admission Diagnosis/Problem Admission Diagnosis/Problem Fever due to infection, Hypoxia, ? Pneumonia due to chronic aspiration Subjective Update: No acute events overnight. No new nursing concerns. Patient successfully weaned off oxygen this morning. Is tolerating ambulating with a walker without desaturation. Patient states that he feels really well and would like to leave the hospital as soon as possible. - Patient Data Vitals - Most Recent: Last Vital Signs Temp 98.8 F 08/07/20 07:41 Pulse 70 08/07/20 09:26 Resp 20 08/07/20 07:41 BP 128/64 08/07/20 09:22 Pulse Ox 95 08/07/20 09:26 Weight - Most Recent: 194 lb 3.2 oz I&O - Last 24 hours: Intake & Output 08/06/20 08/07/20 08/07/20 22:59 06:59 14:59 Intake Total 1280 750 Output Total 300 725 Balance 980 25 Lab Results - Last 24 hrs: Laboratory Results - last 24 hr 08/06/20 08/06/20 Range/Units 20:14 20:14 WBC 6.87 (4.23-9.07) K/mm3 RBC 3.22 L (4.63-6.08) M/mm3 Hgb 10.3 L (13.7-17.5) gm/dl Hct 32.1 L (40.1-51.0) % MCV 99.7 H (79.0-92.2) fl MCH 32.0 (25.7-32.2) pg MCHC 32.1 L (32.2-35.5) g/dl RDW Std Deviation 54.7 H (35.1-43.9) fL Plt Count 165 (163-337) K/mm3 MPV 9.7 (9.4-12.3) fl Neut % (Auto) 65.1 (34.0-67.9) % Lymph % (Auto) 21.4 L (21.8-53.1) % Tyler % (Auto) 13.1 H (5.3-12.2) % Eos % (Auto) 0 L (0.8-7.0) Baso % (Auto) 0.3 (0.1-1.2) % Neut # (Auto) 4.47 (1.78-5.38) K/mm3 Lymph # (Auto) 1.47 (1.32-3.57) K/mm3 Tyler # (Auto) 0.90 H (0.30-0.82) K/mm3 Eos # (Auto) 0.00 L (0.04-0.54) K/mm3 Baso # (Auto) 0.02 (0.01-0.08) K/mm3 Sodium 138 (136-145) mEq/L Potassium 3.9 (3.5-5.1) mEq/L Chloride 105 (98-107) mEq/L Carbon Dioxide 21 (21-32) mEq/L Anion Gap 15.9 H (5-15) BUN 25 H (7-18) mg/dL Creatinine 1.4 H (0.7-1.3) mg/dL Est Cr Clr Drug Dosing 39.83 mL/min Estimated GFR (MDRD) 48 (>60) mL/min BUN/Creatinine Ratio 17.9 (14-18) Glucose 182 H (70-99) mg/dL Calcium 8.2 L (8.5-10.1) mg/dL Med Orders - Current: Current Medications Acetaminophen (Acetaminophen 325 Mg Tab) 650 mg PO Q4H PRN PRN Reason: Pain Last Admin: 08/05/20 18:14 Dose: 650 mg Documented by: Albuterol/Ipratropium (Albuterol/Ipratropium 3.0-0.5 Mg/3 Ml Neb Soln) 3 ml NEB Q4H PRN PRN Reason: Shortness Of Breath/wheezing Allopurinol (Allopurinol 300 Mg Tab) 300 mg PO DAILY [facility] Last Admin: 08/07/20 09:22 Dose: 300 mg Documented by: Amlodipine Besylate (Amlodipine 5 Mg Tab) 5 mg PO DAILY [facility] Last Admin: 08/07/20 09:22 Dose: 5 mg Documented by: Aspirin (Aspirin 81 Mg Tab.Chew) 81 mg PO DAILY [facility] Last Admin: 08/07/20 09:20 Dose: 81 mg Documented by: Atorvastatin Calcium (Atorvastatin 20 Mg Tab) 10 mg PO QPM [facility] Last Admin: 08/06/20 17:45 Dose: 10 mg Documented by: Docusate Sodium (Docusate Sodium 100 Mg Cap) 100 mg PO BID PRN PRN Reason: Constipation Last Admin: 08/06/20 17:45 Dose: 100 mg Documented by: Doxazosin Mesylate (Doxazosin 2 Mg Tab) 2 mg PO DAILY [facility] Last Admin: 08/07/20 09:20 Dose: 2 mg Documented by: Finasteride (Finasteride 5 Mg Tab) 5 mg PO DAILY [facility] Last Admin: 08/07/20 09:20 Dose: 5 mg Documented by: Fluticasone Propionate (Fluticasone Propionate Nasal Climax 16 Gm Bottle) 0 gm NASBOTH BID [facility] Last Admin: 08/07/20 09:22 Dose: 1 spray Documented by: Guaifenesin (Guaifenesin 600 Mg Tab.Er) 600 mg PO BID PRN PRN Reason: Congestion Guaifenesin/Phenylephrine HCl (Guaifenesin/Dextromethorphan 100-10 Mg/5 Ml Soln 5 Ml Cup) 5 ml PO Q4HR PRN PRN Reason: Cough Heparin Sodium (Porcine) (Heparin Sodium 5,000 Units/Ml Vial) 5,000 units SUBCUT Q8HR [facility] Last Admin: 08/07/20 05:14 Dose: 5,000 units Documented by: Ceftriaxone Sodium 1 gm/ (Sodium Chloride) 100 mls @ 200 mls/hr IV Q24H [facility] Last Admin: 08/06/20 20:39 Dose: 200 mls/hr Documented by: Azithromycin 500 mg/ Sodium (Chloride) 250 mls @ 250 mls/hr IV Q24H [facility] Last Admin: 08/06/20 21:24 Dose: 250 mls/hr Documented by: Losartan Potassium (Losartan 50 Mg Tab) 50 mg PO DAILY [facility] Last Admin: 08/07/20 09:21 Dose: 50 mg Documented by: Ondansetron HCl (Ondansetron 4 Mg Tab.Dis) 4 mg PO Q4H PRN PRN Reason: nausea, able to take PO Ondansetron HCl (Ondansetron 4 Mg/2 Ml Sdv) 4 mg IV Q4H PRN PRN Reason: Nausea/Vomiting Sodium Chloride (Sodium Chloride 0.9% 10 Ml Syringe) 10 ml FLUSH ASDIRECTED PRN PRN Reason: Keep Vein Open Discontinued Medications Heparin Sodium (Porcine) (Heparin Sodium 5,000 Units/Ml Vial) 5,000 units SUBCUT Q8H [facility] Last Admin: 08/06/20 06:17 Dose: 5,000 units Documented by: Dextrose/Sodium Chloride (Dextrose 5%-Normal Saline) 1,000 mls @ 125 mls/hr IV ASDIRECTED [facility] Last Admin: 08/05/20 18:14 Dose: 125 mls/hr Documented by: Dextrose/Sodium Chloride (Dextrose 5%-Normal Saline) 1,000 mls @ 999 mls/hr IV ASDIRECTED [facility] Last Admin: 08/05/20 19:14 Dose: 999 mls/hr Documented by: Levofloxacin/Dextrose 500 mg/ (Premix) 100 mls @ 100 mls/hr IV ONETIME ONE Stop: 08/05/20 20:21 Last Admin: 08/05/20 19:34 Dose: 100 mls/hr Documented by: - Exam Quality Assessment: Reports: DVT Prophylaxis General: Reports: Alert Lungs: Reports: Clear to Auscultation, Normal Respiratory Effort Cardiovascular: Reports: Regular Rate, Regular Rhythm GI/Abdominal Exam: Normal Bowel Sounds, Soft, Non-Tender, No Distention Extremities: Normal Inspection, No Pedal Edema Skin: Reports: Warm, Dry Neurological: Reports: No New Focal Deficit Psy/Mental Status: Reports: Normal Mood
== END 2020-08-07 13:03 | disposition home or self-care (01) | DRG 871 ==
LOC: JD.ED 17:30 → JD.MS 20:08
PROVIDERS: ADMIT Hospitalist; ATTEND Hospitalist
DX: R50.9 Fever, unspecified (principal); R09.02 Hypoxemia; R06.82 Tachypnea, not elsewhere classified; R74.02 Elevation of levels of lactic acid dehydrogenase [LDH]; H54.7 Unspecified visual loss; H04.129 Dry eye syndrome of unspecified lacrimal gland; A41.9 Sepsis, unspecified organism; J69.0 Pneumonitis due to inhalation of food and vomit; E78.00 Pure hypercholesterolemia, unspecified; G47.30 Sleep apnea, unspecified; J96.01 Acute respiratory failure with hypoxia; I69.354 Hemiplegia and hemiparesis following cerebral infarction affecting left non-dominant side; M19.90 Unspecified osteoarthritis, unspecified site; M10.9 Gout, unspecified; N40.0 Benign prostatic hyperplasia without lower urinary tract symptoms; Z79.82 Long term (current) use of aspirin; Z79.899 Other long term (current) drug therapy; I11.0 Hypertensive heart disease with heart failure; I50.9 Heart failure, unspecified; K59.09 Other constipation; G47.33 Obstructive sleep apnea (adult) (pediatric); Z98.42 Cataract extraction status, left eye; Z98.41 Cataract extraction status, right eye; Z20.822 Contact with and (suspected) exposure to COVID-19
CPT/HCPCS: 36415; 71045; 80053; 81001; 83605; 83735; 83880; 84484; 85007; 85027; 85610; 85730; 86140; 93005; 94762; A9270; J1956; J7042 ×2; U0002; 51798; 80048; 85025; 92610-GN; 93010; 94760; 94761; 96365; 97110-GO; 97162-GP; 97166-GO; 97530-GP; 99223; 99233; 99239; 99285; 99285-25; J0456; J0696; J1644; J7050

== ENCOUNTER 2021-10-08 08:45 | Emergency (ER) | payer MEDICARE, BC ==
[2021-10-08] MEDS ORDERED: Sodium Chloride 0.9% 1,000 ML IV ONE (08:53)
[2021-10-08] MEDS ORDERED: Sodium Chloride 0.9% 10 ML Syringe FLUSH PRN ×2 (08:53→11:52)
[2021-10-08] MEDS ORDERED: Acetaminophen 325 MG Tab PO ONE (09:14)
[2021-10-08] MEDS ORDERED: Iopamidol 612 MG/ML 100 ML Bottle IVPUSH ONE (11:52)
== END 2021-10-08 15:02 | disposition home or self-care (01) ==
LOC: JD.ED 08:45
DX: U07.1 COVID-19 (principal); D72.829 Elevated white blood cell count, unspecified; R59.9 Enlarged lymph nodes, unspecified; K63.89 Other specified diseases of intestine; I11.0 Hypertensive heart disease with heart failure; I50.9 Heart failure, unspecified; M10.9 Gout, unspecified; Z79.899 Other long term (current) drug therapy; Z79.82 Long term (current) use of aspirin; Z86.16 Personal history of COVID-19; Z86.73 Personal history of transient ischemic attack (TIA), and cerebral infarction without residual deficits
CPT/HCPCS: 36415; 51701; 71045; 74177; 80053; 81003; 83605; 83735; 84145; 85007; 85027; 85610; 86140; 87040; 96360; 96361; 99285; A9270; J3490; J7030; Q9967; U0002; 99284

== ENCOUNTER → 2021-11-13 | Day surgery (SDC) | payer MEDICARE, BC ==
[~2021-11-13] MED LIST: Lactated Ringers 1,000 ML IV SCH; Lidocaine 1% 2 ML ONE; Lidocaine 1%/Sod Bicarbonate in NS 8.4% 1 ML Syringe IDERM PRN; Midazolam 1 MG/ML 2 ML SDV ONE; Ondansetron 4 MG/2 ML SDV IVPUSH PRN; Propofol 200 MG/20 ML SDV ONE; Sodium Chloride 0.9% 10 ML Syringe FLUSH PRN; Sodium Chloride 0.9% 10 ML Syringe FLUSH SCH; fentaNYL 100 MCG/2 ML SDV IVPUSH PRN; fentaNYL 100 MCG/2 ML SDV ONE
== END | disposition home or self-care (01) ==
LOC: JD.SDS 09:28
PROVIDERS: ATTEND Surgery
DX: D12.0 Benign neoplasm of cecum (principal); D12.3 Benign neoplasm of transverse colon; D12.7 Benign neoplasm of rectosigmoid junction; K57.30 Diverticulosis of large intestine without perforation or abscess without bleeding; K64.8 Other hemorrhoids; M10.9 Gout, unspecified; G47.30 Sleep apnea, unspecified; I11.0 Hypertensive heart disease with heart failure; I50.9 Heart failure, unspecified; Z98.890 Other specified postprocedural states; Z79.899 Other long term (current) drug therapy; Z79.82 Long term (current) use of aspirin; Z87.891 Personal history of nicotine dependence
CPT/HCPCS: 45380; J2250; J2704; J3010; J7120

== ENCOUNTER 2021-12-16 09:05 | Inpatient (IN) | payer MEDICARE, BC ==
[2021-12-16] MEDS ORDERED: Sodium Chloride 0.9% 10 ML Syringe FLUSH PRN ×2 (09:45→11:35)
[2021-12-16] MEDS ORDERED: cefTRIAXone 2 GM in Sodium Chloride 0.9% 100 ML IV ONE (10:53)
[2021-12-16] MEDS ORDERED: Sodium Chloride 0.9% 1,000 ML IV ONE (10:54)
[2021-12-16] MEDS ORDERED: Acetaminophen 325 MG Tab PO ONE (11:03)
[2021-12-16] MEDS ORDERED: Iopamidol 612 MG/ML 100 ML Bottle IVPUSH ONE (11:35)
[2021-12-16] MEDS ORDERED: Gadobenate Dimeglumine 529 MG/ML 15 ML SDV IVPUSH ONE (15:10)
[2021-12-16] MEDS ORDERED: Sodium Chloride 0.9% 10 ML Syringe FLUSH SCH (15:15)
[2021-12-16 16:14] LABS: CORONAVIRUS COVID-19 NAA NEGATIVE (NEGATIVE)
[2021-12-16] MEDS ORDERED: Albuterol/Ipratropium 3.0-0.5 MG/3 ML Neb Soln NEB ONE (17:06)
[2021-12-16] MEDS ORDERED: metroNIDAZOLE/Normal Saline 500 MG in Premix Bag 1 BAG IV ONE (18:38)
[2021-12-17] MEDS ORDERED: metroNIDAZOLE/Normal Saline 100 ML ONE ×2 (03:20→13:30)
[2021-12-17] MEDS ORDERED: Acetaminophen 325 MG Tab ONE ×2 (04:55→09:40)
[2021-12-17] MEDS ORDERED: cefTRIAXone 2 GM Vial ONE (09:39)
[2021-12-17] MEDS ORDERED: Allopurinol 300 MG Tab ONE (09:40)
[2021-12-17] MEDS ORDERED: Aspirin 81 MG Tab.EC ONE (09:40)
[2021-12-17] MEDS ORDERED: Finasteride 5 MG Tab ONE (09:40)
[2021-12-17] MEDS ORDERED: Furosemide 20 MG/2 ML VIAL ONE (09:41)
[2021-12-17] MEDS ORDERED: Docusate Sodium 100 MG Cap ONE (09:41)
[2021-12-17] MEDS ORDERED: Tamsulosin 0.4 MG Cap.ER ONE (09:41)
[2021-12-17] MEDS ORDERED: Enoxaparin 40 MG/0.4 ML Syringe ONE (09:42)
[2021-12-17] MEDS ORDERED: Sodium Chloride 0.9% 100 ML ONE (09:42)
[2021-12-17] MEDS ORDERED: oxyCODONE 5 MG Tab ONE (13:29)
[2021-12-17] MEDS ORDERED: Ondansetron 4 MG/2 ML SDV IVPUSH PRN (15:31)
[2021-12-17] MEDS: metroNIDAZOLE/Normal Saline 500 MG in Premix Bag 1 BAG IV SCH (20:33)
[2021-12-17] MEDS: Tamsulosin 0.4 MG Cap.ER PO SCH (20:33)
[2021-12-17] MEDS: Docusate Sodium 100 MG Cap PO SCH (20:33)
[2021-12-18] MEDS: metroNIDAZOLE/Normal Saline 500 MG in Premix Bag 1 BAG IV SCH ×3 (04:14→20:49)
[2021-12-18] MEDS: cefTRIAXone 2 GM in Sodium Chloride 0.9% 100 ML IV SCH (09:00)
[2021-12-18] MEDS: Docusate Sodium 100 MG Cap PO SCH ×2 (09:00→20:20)
[2021-12-18] MEDS: Enoxaparin 40 MG/0.4 ML Syringe SUBCUT SCH (09:01)
[2021-12-18] MEDS: Allopurinol 300 MG Tab PO SCH (09:01)
[2021-12-18] MEDS: Aspirin 81 MG Tab.EC PO SCH (09:01)
[2021-12-18] MEDS: Finasteride 5 MG Tab PO SCH (09:01)
[2021-12-18] MEDS: Tamsulosin 0.4 MG Cap.ER PO SCH ×2 (09:01→20:20)
[2021-12-18] MEDS: atorvaSTATin 20 MG Tab PO SCH (09:01)
[2021-12-18] MEDS ORDERED: Potassium Chloride 20 MEQ Tab.ER PO ONE (09:39)
[2021-12-18] MEDS: Acetaminophen 325 MG Tab PO PRN ×2 (10:28→20:21)
[2021-12-18] MEDS: Furosemide 20 MG Tab PO SCH (10:28)
[2021-12-18] MEDS ORDERED: oxyCODONE 5 MG Tab PO PRN (16:08)
[2021-12-19] MEDS: metroNIDAZOLE/Normal Saline 500 MG in Premix Bag 1 BAG IV SCH (03:43)
[2021-12-19] MEDS: cefTRIAXone 2 GM in Sodium Chloride 0.9% 100 ML IV SCH (07:46)
[2021-12-19] MEDS: Furosemide 20 MG Tab PO SCH (08:02)
[2021-12-19] MEDS: atorvaSTATin 20 MG Tab PO SCH (08:03)
[2021-12-19] MEDS: Docusate Sodium 100 MG Cap PO SCH ×2 (08:04→20:16)
[2021-12-19] MEDS: Tamsulosin 0.4 MG Cap.ER PO SCH ×2 (08:04→20:16)
[2021-12-19] MEDS: Finasteride 5 MG Tab PO SCH (08:04)
[2021-12-19] MEDS: Aspirin 81 MG Tab.EC PO SCH (08:04)
[2021-12-19] MEDS: Allopurinol 300 MG Tab PO SCH (08:04)
[2021-12-19] MEDS: Enoxaparin 40 MG/0.4 ML Syringe SUBCUT SCH (08:11)
[2021-12-19] MEDS: Acetaminophen 325 MG Tab PO PRN ×2 (09:56→20:15)
[2021-12-20] MEDS ORDERED: Bisacodyl 5 MG Tab PO PRN (05:45)
[2021-12-20] MEDS: cefTRIAXone 2 GM in Sodium Chloride 0.9% 100 ML IV SCH (08:14)
[2021-12-20] MEDS: Enoxaparin 40 MG/0.4 ML Syringe SUBCUT SCH (08:15)
[2021-12-20] MEDS: atorvaSTATin 20 MG Tab PO SCH (08:20)
[2021-12-20] MEDS: Aspirin 81 MG Tab.EC PO SCH (08:21)
[2021-12-20] MEDS: Furosemide 20 MG Tab PO SCH (08:21)
[2021-12-20] MEDS: Allopurinol 300 MG Tab PO SCH (08:22)
[2021-12-20] MEDS: Finasteride 5 MG Tab PO SCH (08:22)
[2021-12-20] MEDS: Tamsulosin 0.4 MG Cap.ER PO SCH ×2 (08:22→22:26)
[2021-12-20] MEDS: Docusate Sodium 100 MG Cap PO SCH ×2 (08:22→22:26)
[2021-12-20] MEDS: Polyethylene Glycol 3350 Powder 17 GM Packet PO SCH (08:23)
[2021-12-20] MEDS ORDERED: Sodium Chloride 0.9% 10 ML Syringe FLUSH PRN (08:57)
[2021-12-20] MEDS ORDERED: Iopamidol 755 Mg/ML 100 ML Bottle IVPUSH ONE (08:57)
[2021-12-21] MEDS: cefTRIAXone 2 GM in Sodium Chloride 0.9% 100 ML IV SCH (07:35)
[2021-12-21] MEDS: atorvaSTATin 20 MG Tab PO SCH (09:42)
[2021-12-21] MEDS: Acetaminophen 325 MG Tab PO PRN ×2 (09:44→17:01)
[2021-12-21] MEDS: Allopurinol 300 MG Tab PO SCH (09:45)
[2021-12-21] MEDS: Tamsulosin 0.4 MG Cap.ER PO SCH ×2 (09:46→21:30)
[2021-12-21] MEDS: Furosemide 20 MG Tab PO SCH (09:46)
[2021-12-21] MEDS: Aspirin 81 MG Tab.EC PO SCH (09:46)
[2021-12-21] MEDS: Finasteride 5 MG Tab PO SCH (09:46)
[2021-12-21] MEDS: Docusate Sodium 100 MG Cap PO SCH ×2 (09:46→22:06)
[2021-12-21] MEDS: Potassium Chloride 20 MEQ Tab.ER PO SCH ×3 (09:52→17:01)
[2021-12-21] MEDS: Enoxaparin 40 MG/0.4 ML Syringe SUBCUT SCH (09:53)
[2021-12-21] MEDS: Polyethylene Glycol 3350 Powder 17 GM Packet PO SCH (09:57)
[2021-12-21] MEDS ORDERED: Piperacillin/Tazobactam 4.5 GM in Sodium Chloride 0.9% 100 ML IV ONE (16:28)
[2021-12-22] MEDS: Piperacillin/Tazobactam 4.5 GM in Sodium Chloride 0.9% 100 ML IV SCH ×3 (00:59→17:08)
[2021-12-22] MEDS: atorvaSTATin 20 MG Tab PO SCH (08:05)
[2021-12-22] MEDS: Furosemide 20 MG Tab PO SCH (08:07)
[2021-12-22] MEDS: Aspirin 81 MG Tab.EC PO SCH (08:07)
[2021-12-22] MEDS: Allopurinol 300 MG Tab PO SCH (08:07)
[2021-12-22] MEDS: Potassium Chloride 20 MEQ Tab.ER PO SCH ×3 (08:07→17:08)
[2021-12-22] MEDS: Enoxaparin 40 MG/0.4 ML Syringe SUBCUT SCH (08:08)
[2021-12-22] MEDS: Finasteride 5 MG Tab PO SCH (08:08)
[2021-12-22] MEDS: Polyethylene Glycol 3350 Powder 17 GM Packet PO SCH (08:08)
[2021-12-22] MEDS: Docusate Sodium 100 MG Cap PO SCH ×2 (08:09→21:09)
[2021-12-22] MEDS: Acetaminophen 325 MG Tab PO PRN ×2 (08:22→17:07)
[2021-12-22] MEDS: Tamsulosin 0.4 MG Cap.ER PO SCH ×2 (10:05→21:15)
[2021-12-23] MEDS: Piperacillin/Tazobactam 4.5 GM in Sodium Chloride 0.9% 100 ML IV SCH ×2 (01:28→12:34)
[2021-12-23] MEDS: Furosemide 20 MG Tab PO SCH (12:22)
[2021-12-23] MEDS: Aspirin 81 MG Tab.EC PO SCH (12:23)
[2021-12-23] MEDS: Allopurinol 300 MG Tab PO SCH (12:23)
[2021-12-23] MEDS: Finasteride 5 MG Tab PO SCH (12:23)
[2021-12-23] MEDS: atorvaSTATin 20 MG Tab PO SCH (12:23)
[2021-12-23] MEDS: Potassium Chloride 20 MEQ Tab.ER PO SCH ×2 (12:24→12:32)
[2021-12-23] MEDS ORDERED: Sodium Chloride 0.9% 100 ML ONE (12:31)
[2021-12-23] MEDS: Enoxaparin 40 MG/0.4 ML Syringe SUBCUT SCH (12:32)
[2021-12-23] MEDS: Polyethylene Glycol 3350 Powder 17 GM Packet PO SCH (12:33)
[2021-12-23] MEDS: Tamsulosin 0.4 MG Cap.ER PO SCH (12:33)
[2021-12-23] MEDS: Docusate Sodium 100 MG Cap PO SCH (12:33)
== END 2021-12-23 14:20 | DRG 871 ==
LOC: JD.ED 09:05 → JD.MS 12:59 → JD.ED 19:55
PROVIDERS: ADMIT Internal Medicine; ATTEND Internal Medicine
DX: A41.51 Sepsis due to Escherichia coli [E. coli] (principal); R09.02 Hypoxemia; R50.9 Fever, unspecified; J18.9 Pneumonia, unspecified organism; C18.9 Malignant neoplasm of colon, unspecified; N39.0 Urinary tract infection, site not specified; I50.32 Chronic diastolic (congestive) heart failure; I50.9 Heart failure, unspecified; E78.00 Pure hypercholesterolemia, unspecified; I11.0 Hypertensive heart disease with heart failure; G47.30 Sleep apnea, unspecified; N40.0 Benign prostatic hyperplasia without lower urinary tract symptoms; M19.90 Unspecified osteoarthritis, unspecified site; M06.9 Rheumatoid arthritis, unspecified; Z20.822 Contact with and (suspected) exposure to COVID-19; Z66 Do not resuscitate; K63.89 Other specified diseases of intestine; M54.2 Cervicalgia; N40.1 Benign prostatic hyperplasia with lower urinary tract symptoms; D64.9 Anemia, unspecified; R35.0 Frequency of micturition; R79.89 Other specified abnormal findings of blood chemistry; M1A.00X0 Idiopathic chronic gout, unspecified site, without tophus (tophi); I10 Essential (primary) hypertension; Z79.82 Long term (current) use of aspirin; Z87.891 Personal history of nicotine dependence; Z86.73 Personal history of transient ischemic attack (TIA), and cerebral infarction without residual deficits; Z86.16 Personal history of COVID-19; Z79.899 Other long term (current) drug therapy
CPT/HCPCS: 0240U; 36415; 71045; 71046; 72126; 72156; 74177; 80048; 80053; 81001; 83605; 83880; 84484; 85025; 85610; 85652; 86140; 87040; 87077; 87086; 87088; 87154; 87186; 92610; 93005; 94640; 94660; 94760; 94761; 97116; 97166; 97530; 97535; A9270-GY; A9577; J0696; J1650; J2543; J3490; J7030; J7620-GY; Q9967; U0002

== ENCOUNTER 2022-04-02 18:58 | Inpatient (IN) | payer MEDICARE, BC ==
[2022-04-02] MEDS ORDERED: Sodium Chloride 0.9% 10 ML Syringe FLUSH PRN (19:33)
[2022-04-02 20:37] LABS: ESTIMATED GFR 59 mL/min (>60)
[2022-04-02 20:48] LABS: CORONAVIRUS COVID-19 NAA NEGATIVE (NEGATIVE)
[2022-04-02] MEDS ORDERED: cefTRIAXone 2 GM in Sodium Chloride 0.9% 100 ML IV ONE (22:19)
[2022-04-03] MEDS ORDERED: Acetaminophen 325 MG Tab PO PRN (05:13)
[2022-04-03] MEDS ORDERED: Enoxaparin 30 MG/0.3 ML Syringe SUBCUT SCH (08:00)
[2022-04-03] MEDS ORDERED: Sodium Chloride 0.9% 500 ML ONE (09:24)
[2022-04-03] MEDS: guaiFENesin 600 MG Tab.ER PO SCH ×2 (09:51→20:41)
[2022-04-03] MEDS: Allopurinol 300 MG Tab PO SCH (09:52)
[2022-04-03] MEDS: Fluticasone NASAL Spray 16 GM Bottle NASBOTH SCH ×2 (09:53→20:30)
[2022-04-03] MEDS: Donepezil 10 MG Tab PO SCH (09:53)
[2022-04-03] MEDS: Furosemide 20 MG Tab PO SCH (09:54)
[2022-04-03] MEDS: Finasteride 5 MG Tab PO SCH (09:54)
[2022-04-03] MEDS: Tamsulosin 0.4 MG Cap.ER PO SCH ×2 (09:54→20:40)
[2022-04-03] MEDS: Carboxymethylcellulose Sodium 1% Ophth Gel 15 ML Bottle EYEBOTH SCH ×3 (09:54→20:30)
[2022-04-03] MEDS: cefTRIAXone 1 GM in Sodium Chloride 0.9% 100 ML IV SCH (21:15)
[2022-04-04] MEDS: Fluticasone NASAL Spray 16 GM Bottle NASBOTH SCH ×2 (08:40→20:01)
[2022-04-04] MEDS: Donepezil 10 MG Tab PO SCH (08:40)
[2022-04-04] MEDS: Finasteride 5 MG Tab PO SCH (08:40)
[2022-04-04] MEDS: Furosemide 20 MG Tab PO SCH (08:40)
[2022-04-04] MEDS: Allopurinol 300 MG Tab PO SCH (08:40)
[2022-04-04] MEDS: Tamsulosin 0.4 MG Cap.ER PO SCH ×2 (08:40→20:01)
[2022-04-04] MEDS: guaiFENesin 600 MG Tab.ER PO SCH ×2 (08:40→20:01)
[2022-04-04] MEDS: Carboxymethylcellulose Sodium 1% Ophth Gel 15 ML Bottle EYEBOTH SCH ×3 (08:40→20:01)
[2022-04-04] MEDS: cefTRIAXone 1 GM in Sodium Chloride 0.9% 100 ML IV SCH (21:13)
[2022-04-05 07:05] LABS: ESTIMATED GFR 83 mL/min (>60)
[2022-04-05] MEDS: guaiFENesin 600 MG Tab.ER PO SCH ×2 (08:35→20:10)
[2022-04-05] MEDS: Allopurinol 300 MG Tab PO SCH (08:35)
[2022-04-05] MEDS: Tamsulosin 0.4 MG Cap.ER PO SCH ×2 (08:36→20:10)
[2022-04-05] MEDS: Furosemide 20 MG Tab PO SCH (08:36)
[2022-04-05] MEDS: Donepezil 10 MG Tab PO SCH (08:36)
[2022-04-05] MEDS: Finasteride 5 MG Tab PO SCH (08:36)
[2022-04-05] MEDS: Carboxymethylcellulose Sodium 1% Ophth Gel 15 ML Bottle EYEBOTH SCH ×3 (08:37→20:10)
[2022-04-05] MEDS: Fluticasone NASAL Spray 16 GM Bottle NASBOTH SCH ×2 (08:37→20:10)
[2022-04-05] MEDS: Potassium Chloride 20 MEQ Tab.ER PO SCH ×2 (14:11→20:10)
[2022-04-05] MEDS: cefTRIAXone 1 GM in Sodium Chloride 0.9% 100 ML IV SCH (21:26)
[2022-04-06] MEDS: Finasteride 5 MG Tab PO SCH (08:55)
[2022-04-06] MEDS: Allopurinol 300 MG Tab PO SCH (08:56)
[2022-04-06] MEDS: Tamsulosin 0.4 MG Cap.ER PO SCH ×2 (08:56→20:07)
[2022-04-06] MEDS: Potassium Chloride 20 MEQ Tab.ER PO SCH ×3 (08:56→20:07)
[2022-04-06] MEDS: guaiFENesin 600 MG Tab.ER PO SCH ×2 (08:56→20:08)
[2022-04-06] MEDS: Carboxymethylcellulose Sodium 1% Ophth Gel 15 ML Bottle EYEBOTH SCH ×3 (08:56→20:07)
[2022-04-06] MEDS: Donepezil 10 MG Tab PO SCH (08:56)
[2022-04-06] MEDS: Furosemide 20 MG Tab PO SCH (08:56)
[2022-04-06] MEDS: Fluticasone NASAL Spray 16 GM Bottle NASBOTH SCH ×2 (08:57→20:07)
[2022-04-06] MEDS ORDERED: atorvaSTATin 20 MG Tab PO SCH (18:00)
[2022-04-06] MEDS: cefTRIAXone 1 GM in Sodium Chloride 0.9% 100 ML IV SCH (21:11)
[2022-04-07] MEDS: Furosemide 20 MG Tab PO SCH (08:07)
[2022-04-07] MEDS: guaiFENesin 600 MG Tab.ER PO SCH (08:08)
[2022-04-07] MEDS: Allopurinol 300 MG Tab PO SCH (08:08)
[2022-04-07] MEDS: Carboxymethylcellulose Sodium 1% Ophth Gel 15 ML Bottle EYEBOTH SCH (08:08)
[2022-04-07] MEDS: Fluticasone NASAL Spray 16 GM Bottle NASBOTH SCH (08:08)
[2022-04-07] MEDS: Donepezil 10 MG Tab PO SCH (08:08)
[2022-04-07] MEDS: Tamsulosin 0.4 MG Cap.ER PO SCH (08:08)
[2022-04-07] MEDS: Finasteride 5 MG Tab PO SCH (08:08)
[2022-04-07] MEDS: Potassium Chloride 20 MEQ Tab.ER PO SCH (08:08)
[2022-04-07] MEDS ORDERED: Aspirin 81 MG Tab.Chew PO SCH (09:00)
== END 2022-04-07 13:55 | DRG 811 ==
LOC: JD.ED 18:58 → JD.MS 04-03 01:09
PROVIDERS: ADMIT Internal Medicine; ATTEND Internal Medicine
PROC: 30233N1 Transfusion of Nonautologous Red Blood Cells into Peripheral Vein, Percutaneous Approach (ICD-10-PCS; principal; 2022-04-02)
DX: D50.0 Iron deficiency anemia secondary to blood loss (chronic) (principal); N39.0 Urinary tract infection, site not specified; J18.9 Pneumonia, unspecified organism; E78.00 Pure hypercholesterolemia, unspecified; I10 Essential (primary) hypertension; N40.0 Benign prostatic hyperplasia without lower urinary tract symptoms; C18.2 Malignant neoplasm of ascending colon; Z86.73 Personal history of transient ischemic attack (TIA), and cerebral infarction without residual deficits; I50.32 Chronic diastolic (congestive) heart failure; K62.5 Hemorrhage of anus and rectum; N30.01 Acute cystitis with hematuria; R78.81 Bacteremia; I69.354 Hemiplegia and hemiparesis following cerebral infarction affecting left non-dominant side; F03.90 Unspecified dementia, unspecified severity, without behavioral disturbance, psychotic disturbance, mood disturbance, and anxiety; R09.02 Hypoxemia; Z66 Do not resuscitate; N40.1 Benign prostatic hyperplasia with lower urinary tract symptoms; R35.0 Frequency of micturition; I11.0 Hypertensive heart disease with heart failure; K63.89 Other specified diseases of intestine; K59.09 Other constipation; K29.70 Gastritis, unspecified, without bleeding; G47.33 Obstructive sleep apnea (adult) (pediatric); Z20.822 Contact with and (suspected) exposure to COVID-19; E78.5 Hyperlipidemia, unspecified; Z79.899 Other long term (current) drug therapy; Z79.1 Long term (current) use of non-steroidal anti-inflammatories (NSAID); Z97.3 Presence of spectacles and contact lenses; Z97.4 Presence of external hearing-aid; Z87.01 Personal history of pneumonia (recurrent); Z86.16 Personal history of COVID-19; Z98.42 Cataract extraction status, left eye; Z98.41 Cataract extraction status, right eye; Z87.891 Personal history of nicotine dependence
CPT/HCPCS: 0241U; 36415; 36430; 71045; 80048; 80053; 81001; 82272; 82607; 82747; 83540; 83605; 83735; 85007; 85014; 85025; 85027; 85610; 86140; 86850; 86900; 86901; 86922; 87040; 87077; 87086; 87088; 87154; 87186; 94760; 94761; 97110; 97162; 97530; 99222; 99232; 99239; A9270-GY; J0696; J1650; J3490; J7040; P9016; U0002

== ENCOUNTER 2022-04-13 08:21 | Inpatient (IN) | payer MEDICARE, BC ==
[2022-04-13] MEDS ORDERED: Lactated Ringers 500 ML IV ONE (08:58)
[2022-04-13] MEDS ORDERED: Piperacillin/Tazobactam 4.5 GM in Sodium Chloride 0.9% 100 ML IV ONE (09:00)
[2022-04-13] MEDS ORDERED: Magnesium Sulfate/Water 2 GM in Premix Bag 1 BAG IV ONE (09:07)
[2022-04-13] MEDS ORDERED: Ondansetron 4 MG/2 ML SDV ONE (10:27)
[2022-04-13] MEDS ORDERED: Ondansetron 4 MG/2 ML SDV IVPUSH ONE (10:27)
[2022-04-13] MEDS ORDERED: Iopamidol 612 MG/ML 100 ML Bottle IVPUSH ONE (11:12)
[2022-04-13] MEDS ORDERED: Iopamidol 755 MG/ML 50 ML Bottle IVPUSH ONE (11:12)
[2022-04-13] MEDS ORDERED: Magnesium Sulfate/Water 50 ML ONE (11:45)
[2022-04-13] MEDS ORDERED: Morphine 2 MG/ML SYRINGE IVPUSH PRN (15:16)
[2022-04-13] MEDS ORDERED: Ondansetron 4 MG/2 ML SDV IV PRN (15:16)
[2022-04-13] MEDS: Sodium Chloride 0.9% 1,000 ML IV SCH (17:33)
[2022-04-13] MEDS: Acetaminophen 650 MG Supp RECTAL PRN (19:11)
[2022-04-14] MEDS: Sodium Chloride 0.9% 1,000 ML IV SCH ×2 (02:27→11:32)
[2022-04-14] MEDS ORDERED: LORazepam 0.5 MG Tab PO PRN (14:02)
[2022-04-14] MEDS: Acetaminophen 650 MG Supp RECTAL PRN (20:14)
== END 2022-04-15 13:25 | DRG 374 ==
LOC: JD.ED 08:21 → JD.MS 15:23
PROVIDERS: ADMIT Internal Medicine; ATTEND Internal Medicine
DX: K56.699 Other intestinal obstruction unspecified as to partial versus complete obstruction (principal); C18.0 Malignant neoplasm of cecum; C18.2 Malignant neoplasm of ascending colon; J18.9 Pneumonia, unspecified organism; C78.6 Secondary malignant neoplasm of retroperitoneum and peritoneum; I50.32 Chronic diastolic (congestive) heart failure; R18.0 Malignant ascites; N13.30 Unspecified hydronephrosis; N40.1 Benign prostatic hyperplasia with lower urinary tract symptoms; R35.0 Frequency of micturition; M1A.00X0 Idiopathic chronic gout, unspecified site, without tophus (tophi); I10 Essential (primary) hypertension; D50.0 Iron deficiency anemia secondary to blood loss (chronic); E78.00 Pure hypercholesterolemia, unspecified; H91.90 Unspecified hearing loss, unspecified ear; Z86.73 Personal history of transient ischemic attack (TIA), and cerebral infarction without residual deficits; E86.0 Dehydration; Z86.16 Personal history of COVID-19; Z51.5 Encounter for palliative care; Z66 Do not resuscitate; I11.0 Hypertensive heart disease with heart failure; I50.9 Heart failure, unspecified; I69.354 Hemiplegia and hemiparesis following cerebral infarction affecting left non-dominant side; N40.0 Benign prostatic hyperplasia without lower urinary tract symptoms; Z79.899 Other long term (current) drug therapy
CPT/HCPCS: 36415; 71260; 74177; 80053; 83690; 83880; 84484; 85025; 85610; 87040 ×2; 93005; J2405; J2543; J3475; J7120; Q9967; 93010; 94761; 99285; A9270-GY; J7030